=== PATIENT | male | born 1990 | race Caucasian/White ===

== ENCOUNTER 2022-11-09 18:49 | Inpatient (IN) | payer MEDICAID, OTHER ==
[2022-11-09] MEDS ORDERED: SODIUM CHLORIDE 0.9% 1,000 ML IV STA (19:13)
[2022-11-09] MEDS ORDERED: ONDANSETRON 4 MG/2 ML VIAL IVP STA (19:13)
[2022-11-09] MEDS ORDERED: FAMOTIDINE 20 MG/2 ML VIAL IV STA (19:14)
--- NOTE | 2022-11-09 19:17 | ED ---
General Adult HPI - General Chief complaint: Psychiatric Symptoms Stated complaint: mental health Time Seen by Provider: 11/09/22 18:57 Source: patient, RN notes reviewed Mode of arrival: ambulatory Limitations: no limitations - History of Present Illness Initial comments: Patient is a pleasant 32-year-old male presenting to the emergency department with mental health concerns. Patient admits to feeling depressed. Patient has suicidal ideation. Patient does have planned over heat himself in the shower and has tried to do that. No homicidal thoughts. No hallucinations. Patient states she does drink alcohol daily. Patient states there has been some nausea and vomiting. Patient is also having muscle contractions, especially nighttime. - Related Data Home Medications Medication Instructions Recorded Confirmed No Known Home Medications 11/09/22 11/10/22 Allergies Allergy/AdvReac Type Severity Reaction Status Date / Time ibuprofen [From Motrin] Allergy Rash/Hives Verified 11/10/22 00:08 Review of Systems ROS Statement: Those systems with pertinent positive or pertinent negative responses have been documented in the HPI. ROS Other: All systems not noted in ROS Statement are negative. Constitutional: Denies: fever Eyes: Denies: eye pain ENT: Denies: ear pain Respiratory: Denies: cough Cardiovascular: Denies: chest pain Endocrine: Denies: fatigue Gastrointestinal: Reports: nausea, vomiting. Denies: abdominal pain Genitourinary: Denies: dysuria Musculoskeletal: Denies: back pain Psychiatric: Reports: anxiety, depression, suicidal thoughts Past Medical History Past Medical History: No Reported History History of Any Multi-Drug Resistant Organisms: None Reported Past Surgical History: No Surgical Hx Reported Past Psychological History: Anxiety Past Alcohol Use History: Daily Past Drug Use History: Marijuana General Exam Limitations: no limitations General appearance: alert, in no apparent distress Head exam: Present: normocephalic Eye exam: Present: normal appearance ENT exam: Present: normal oropharynx Neck exam: Present: normal inspection Respiratory exam: Present: normal lung sounds bilaterally Cardiovascular Exam: Present: regular rate, normal rhythm GI/Abdominal exam: Present: soft. Absent: tenderness Extremities exam: Present: normal inspection Neurological exam: Present: alert Psychiatric exam: Present: depressed Skin exam: Present: normal color Course Vital Signs 11/09/22 11/09/22 18:57 21:35 Temperature 98.7 F 98.6 F Pulse Rate 126 H 106 H Respiratory 22 19 Rate Blood Pressure 135/101 144/85 O2 Sat by Pulse 96 97 Oximetry Medical Decision Making - Lab Data Result diagrams: 11/10/22 12:14 11/10/22 12:14 Lab Results 11/09/22 11/09/22 11/09/22 Range/Units 19:22 19:22 19:44 WBC 13.4 H (3.8-10.6) k/uL RBC 5.50 (4.30-5.90) m/uL Hgb 17.6 H (13.0-17.5) gm/dL Hct 49.9 (39.0-53.0) % MCV 90.7 (80.0-100.0) fL MCH 31.9 (25.0-35.0) pg MCHC 35.2 (31.0-37.0) g/dL RDW 12.8 (11.5-15.5) % Plt Count 321 (150-450) k/uL MPV 7.5 Neutrophils % 86 % Lymphocytes % 5 % Monocytes % 7 % Eosinophils % 0 % Basophils % 0 % Neutrophils # 11.5 H (1.3-7.7) k/uL Lymphocytes # 0.6 L (1.0-4.8) k/uL Monocytes # 1.0 (0-1.0) k/uL Eosinophils # 0.0 (0-0.7) k/uL Basophils # 0.0 (0-0.2) k/uL Sodium 136 L (137-145) mmol/L Potassium 4.9 (3.5-5.1) mmol/L Chloride 92 L (98-107) mmol/L Carbon Dioxide 15 L (22-30) mmol/L Anion Gap 29 mmol/L BUN 23 H (9-20) mg/dL Creatinine 1.82 H (0.66-1.25) mg/dL Est GFR (CKD-EPI)AfAm 56 (>60 ml/min/1.73 sqM) Est GFR (CKD-EPI)NonAf 48 (>60 ml/min/1.73 sqM) Glucose 123 H (74-99) mg/dL Calcium 10.6 H (8.4-10.2) mg/dL Magnesium 2.3 (1.6-2.3) mg/dL Total Bilirubin 1.7 H (0.2-1.3) mg/dL AST 50 (17-59) U/L ALT 42 (4-49) U/L Alkaline Phosphatase 117 (38-126) U/L Total Protein 10.4 H (6.3-8.2) g/dL Albumin 5.7 H (3.5-5.0) g/dL Urine Opiates Screen Not Detected (NotDetected) Ur Oxycodone Screen Not Detected (NotDetected) Urine Methadone Screen Not Detected (NotDetected) Ur Propoxyphene Screen Not Detected (NotDetected) Ur Barbiturates Screen Not Detected (NotDetected) U Tricyclic Antidepress Not Detected (NotDetected) Ur Phencyclidine Scrn Not Detected (NotDetected) Ur Amphetamines Screen Not Detected (NotDetected) U Methamphetamines Scrn Not Detected (NotDetected) U Benzodiazepines Scrn Not Detected (NotDetected) Urine Cocaine Screen Not Detected (NotDetected) U Marijuana (THC) Screen Detected H (NotDetected) Coronavirus (PCR) (Not Detectd) 11/09/22 Range/Units 23:14 WBC (3.8-10.6) k/uL RBC (4.30-5.90) m/uL Hgb (13.0-17.5) gm/dL Hct (39.0-53.0) % MCV (80.0-100.0) fL MCH (25.0-35.0) pg MCHC (31.0-37.0) g/dL RDW (11.5-15.5) % Plt Count (150-450) k/uL MPV Neutrophils % % Lymphocytes % % Monocytes % % Eosinophils % % Basophils % % Neutrophils # (1.3-7.7) k/uL Lymphocytes # (1.0-4.8) k/uL Monocytes # (0-1.0) k/uL Eosinophils # (0-0.7) k/uL Basophils # (0-0.2) k/uL Sodium (137-145) mmol/L Potassium (3.5-5.1) mmol/L Chloride (98-107) mmol/L Carbon Dioxide (22-30) mmol/L Anion Gap mmol/L BUN (9-20) mg/dL Creatinine (0.66-1.25) mg/dL Est GFR (CKD-EPI)AfAm (>60 ml/min/1.73 sqM) Est GFR (CKD-EPI)NonAf (>60 ml/min/1.73 sqM) Glucose (74-99) mg/dL Calcium (8.4-10.2) mg/dL Magnesium (1.6-2.3) mg/dL Total Bilirubin (0.2-1.3) mg/dL AST (17-59) U/L ALT (4-49) U/L Alkaline Phosphatase (38-126) U/L Total Protein (6.3-8.2) g/dL Albumin (3.5-5.0) g/dL Urine Opiates Screen (NotDetected) Ur Oxycodone Screen (NotDetected) Urine Methadone Screen (NotDetected) Ur Propoxyphene Screen (NotDetected) Ur Barbiturates Screen (NotDetected) U Tricyclic Antidepress (NotDetected) Ur Phencyclidine Scrn (NotDetected) Ur Amphetamines Screen (NotDetected) U Methamphetamines Scrn (NotDetected) U Benzodiazepines Scrn (NotDetected) Urine Cocaine Screen (NotDetected) U Marijuana (THC) Screen (NotDetected) Coronavirus (PCR) Not Detected (Not Detectd) Disposition Clinical Impression: Depression, Suicidal ideation Disposition: ADMITTED IP TO THIS HOSP Condition: Stable Is patient prescribed a controlled substance at d/c from ED?: No
[2022-11-09 19:41] LABS: ALT 42 U/L (4-49); AST 50 U/L (17-59); African American GFR (CKD) 56 (>60 ml/min/1.73 sqM); Albumin 5.7 g/dL (3.5-5.0); Alkaline Phosphatase 117 U/L (38-126); Anion Gap 29 mmol/L; Blood Urea Nitrogen 23 mg/dL (9-20); Calcium 10.6 mg/dL (8.4-10.2); Carbon Dioxide 15 mmol/L (22-30); Chloride 92 mmol/L (98-107); Glucose 123 mg/dL (74-99); Magnesium 2.3 mg/dL (1.6-2.3); Non-African American GFR(CKD) 48 (>60 ml/min/1.73 sqM); Potassium 4.9 mmol/L (3.5-5.1); Sodium 136 mmol/L (137-145); Total Bilirubin 1.7 mg/dL (0.2-1.3); Total Protein 10.4 g/dL (6.3-8.2)
[2022-11-09] MEDS ORDERED: SODIUM CHLORIDE 0.9% 500 ML 500 ML IV STA (19:57)
[2022-11-09 20:25] LABS: Basophils % (A) 0 %; Eosinophils % (A) 0 %; HCT 49.9 % (39.0-53.0); HGB 17.6 gm/dL (13.0-17.5); Lymphocytes # (A) 0.6 k/uL (1.0-4.8); Lymphocytes % (A) 5 %; MCH 31.9 pg (25.0-35.0); MCHC 35.2 g/dL (31.0-37.0); MCV 90.7 fL (80.0-100.0); Mean Platelet Volume 7.5; Monocytes % (A) 7 %; Neutrophils # (A) 11.5 k/uL (1.3-7.7); Neutrophils % (A) 86 %; Platelet Count 321 k/uL (150-450); RDW 12.8 % (11.5-15.5); WBC 13.4 k/uL (3.8-10.6)
[2022-11-09] MEDS ORDERED: ORPHENADRINE 30 MG/ML 2 ML VIAL IVP STA (21:03)
[2022-11-09 22:39] LABS: Amphetamine Screen,Urine Not Detected (NotDetected); Barbiturate Screen,Urine Not Detected (NotDetected); Benzodiazepines Screen,Urine Not Detected (NotDetected); Cocaine Screen,Urine Not Detected (NotDetected); Methadone Screen, Urine Not Detected (NotDetected); Opiate Screen,Urine Not Detected (NotDetected); Oxycodone Screen, Urine Not Detected (NotDetected); Phencyclidine Screen,Urine Not Detected (NotDetected); Tricyclic Antidepressant,Urine Not Detected (NotDetected); Urn Cannabinoid Scrn Detected (NotDetected)
[2022-11-09] MEDS ORDERED: MAG HYDROX/AL HYDROX/SIMETH 30 ML CUP PO PRN (23:24)
[2022-11-09] MEDS ORDERED: IBUPROFEN 600 MG TAB PO PRN (23:24)
[2022-11-09] MEDS ORDERED: haloperidoL 5 MG TAB PO PRN (23:24)
[2022-11-09] MEDS ORDERED: traZODone HCL 50 MG TAB PO PRN (23:24)
[2022-11-09] MEDS ORDERED: LORazepam 2 MG/ML INJ IM PRN (23:24)
[2022-11-09] MEDS ORDERED: HALOPERIDOL LACTATE 5 MG/ML 1 ML VIAL IM PRN (23:24)
[2022-11-09] MEDS ORDERED: MAGNESIUM HYDROXIDE 2,400 MG/10 ML CUP PO PRN (23:24)
[2022-11-10] MEDS: LORazepam 1 MG TAB PO PRN ×2 (01:07→08:13)
[2022-11-10] MEDS: ACETAMINOPHEN TAB 325 MG TAB PO PRN ×2 (01:08→17:54)
[2022-11-10] MEDS ORDERED: diphenhydrAMINE 50 MG CAP PO STA (01:12)
[2022-11-10 03:11] LABS: Amorphous Sediment,Urine Occasional /hpf; Appearance,Urine Cloudy (Clear); Bilirubin,Urine Negative (Negative); Blood,Urine Negative (Negative); Color,Urine Yellow; Glucose,Urine (UA) Negative (Negative); Hyaline Casts,Urine 1976 /lpf (0-2); Ketones,Urine 2+ (Negative); Leukocyte Esterase,Urine Negative (Negative); Mucus,Urine Many /hpf; Nitrite,Urine Negative (Negative); Protein,Urine 3+ (Negative); RBC,Urine 6 /hpf (0-5); Specific Gravity,Urine 1.033 (1.001-1.035); Squamous Epithelial Cell,Urine 2 /hpf (0-4); WBC,Urine 9 /hpf (0-5)
[2022-11-10] MEDS ORDERED: NICOTINE 14MG/24HR PATCH TRANSDERM SCH (09:00)
[2022-11-10 12:44] LABS: Basophils % (A) 0 %; Eosinophils % (A) 0 %; HCT 46.1 % (39.0-53.0); HGB 15.8 gm/dL (13.0-17.5); Lymphocytes # (A) 1.2 k/uL (1.0-4.8); Lymphocytes % (A) 10 %; MCH 32.1 pg (25.0-35.0); MCHC 34.2 g/dL (31.0-37.0); MCV 93.9 fL (80.0-100.0); Mean Platelet Volume 7.2; Monocytes # (A) 0.7 k/uL (0-1.0); Monocytes % (A) 6 %; Neutrophils # (A) 9.6 k/uL (1.3-7.7); Neutrophils % (A) 82 %; Platelet Count 303 k/uL (150-450); RBC 4.91 m/uL (4.30-5.90); RDW 12.4 % (11.5-15.5); WBC 11.7 k/uL (3.8-10.6)
[2022-11-10 12:57] LABS: ALT 32 U/L (4-49); AST 38 U/L (17-59); African American GFR (CKD) >90 (>60 ml/min/1.73 sqM); Albumin 4.8 g/dL (3.5-5.0); Alkaline Phosphatase 104 U/L (38-126); Anion Gap 15 mmol/L; Blood Urea Nitrogen 17 mg/dL (9-20); Calcium 9.6 mg/dL (8.4-10.2); Carbon Dioxide 26 mmol/L (22-30); Chloride 95 mmol/L (98-107); Glucose 104 mg/dL (74-99); Non-African American GFR(CKD) >90 (>60 ml/min/1.73 sqM); Potassium 4.2 mmol/L (3.5-5.1); Sodium 136 mmol/L (137-145); Total Bilirubin 1.7 mg/dL (0.2-1.3); Total Protein 8.5 g/dL (6.3-8.2)
[2022-11-10] MEDS ORDERED: LORazepam 1 MG TAB PO PRN (13:49)
--- NOTE | 2022-11-10 14:03 | P.CN ---
Psychiatric Consult - . Consult date: 11/10/22 Consult:: 11/10/22 13:45 IDENTIFYING DATA: Patient is a 32-year-old male, currently lives alone in a trailer, he works doing [employer] times, he has one son and is currently . HPI: Patient presented to the hospital yesterday, complaining of depression and anxiety and suicidal thoughts and also alcohol abuse. Patient was admitted voluntarily to the mental health unit and seen today for intake. Patient appeared to be disheveled and unkempt in appearance. He states that his left him in August and also took his son as well and he can only see him for once a week. He states that he also has been having relationship issues with his mother, he states that she has been the main support for him however they often get into arguments. He states that he also has little other friends and support outside of his mother. He claims that he lives alone which has been hard for him. Claims that he feels that he has been getting sick with different sinus infections and also abdominal pain in the past few months. He states that he has severe levels of anxiety during the day and at nighttime experiences panic attacks almost nightly. He claims is mainly palpitations and needs to pace around the room for about 5 minutes to get it to calm down. He claims that his also been feeling depressed and claims that he has been also feeling suicidal lately. He claims that he wanted to overheat himself in the shower 3 times in the past however it is failed. He claims that his sleep has been poor, having frequent awakenings. he states that he is still having suicidal thoughts, no intent or plan. denies any homicidal ideations intent or plan. At this time patient denies any auditory or visual hallucinations. Patient denies any flight of ideas racing thoughts and increased in goal directed behavior. Patient admits to using thc occasionally, denies any cigarette use. he claims that he is drinking several beers and approx a half pint of whiskey per day. PAST PSYCHIATRIC HISTORY: Patient states that he has a hx of depression and anxiety. He claims that he is currently not on any psychiatric medications at this time however has been on Xanax in the past. States that he was last psychiatrically admitted to [facility] unit at 10 years ago. Patient denies any psychiatric outpatient follow-up. Patient denies any history of suicide attempts in the past. Past Medical History: No Reported History History of Any Multi-Drug Resistant Organisms: None Reported Past Surgical History: No Surgical Hx Reported Past Psychological History: Anxiety Past Alcohol Use History: Daily Past Drug Use History: Marijuana ALLERGIES: as per EMR CHEMICAL DEPENDENCY HISTORY: as per HPI FAMILY PSYCHIATRIC/SUBSTANCE USE HISTORY: He claims that his mother has severe anxiety. SOCIAL HISTORY: Patient was born and raised in [place] and also in [place]. He claims that he completed high school. 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 He states that he has one son, is currently . He lives in a trailer alone. He denies any legal history. MENTAL STATUS EXAM: General Appearance: Patient appears to be thin, tall, longer hair, unkempt/disheveled appearance, stated age is alert, directable, and attempts to cooperate. Patient appears to have poor hygiene and grooming. Behavior: Patient is seated without any agitated behavior. Tearful at times. Attempts to cooperate. Speech: Patient's speech is fluent and nonpressured. Mood/Affect: Patient reports their mood is depressed and anxious, affect is congruent and tearful Suicidality/Homicidality: Patient denies having any homicidal ideation intent or plan. Things that he has suicidal thoughts however no intent or plan. Perceptions: Patient denies any visual hallucinations and denies any auditory hallucinations Though content/process: There is no evidence of any delusional thought content and thought process is linear and goal-directed. Focused on his symptoms. Memory and concentration: AOX3, grossly intact for the purposes of this session. Can spell "WORLD" backwards Judgment and insight: poor STRENGTHS/WEAKNESSES: strength is that patient is resilient. Weakness is that patient [has poor judgment and poor social support INTELLECT: average IMPRESSIONS: Major depressive disorder, severe, recurrent without psychotic features Generalized anxiety disorder with panic attacks Cannabis use disorder mild Alcohol use disorder, severe dependence PLAN: -Patient is admitted under voluntary status to MHU for stabilization of psychiatric symptoms and safety. Patient has signed adult voluntary form and medication consent and is placed in patient's chart. -Medications : Will start patient on Cymbalta 30 mg daily for mood/anxiety, Librium 20 mg 3 times a day for alcohol withdrawal, Seroquel 50 mg daily at bedtime for mood stabilization/anxiety/insomnia. -Ativan and Haldol PRN for agitation/aggression -thiamine, MVM for etoh use -CIWA protocol with Ativan PRN for ETOH withdrawal -Patient was counselled on substance abuse and desired to cut back on use -Patient was informed of the risks, benefits and side effects of the medication and patient verbally consented to taking the medications. Patient signed med consent form and was placed in chart. -Internal Medicine consult to perform medical evaluation and physical. -NRT - not needed as patient does not smoke -SW on board for discharge planning. Encourage patient to participate in groups to work on coping skills. 11/10/22 13:54
[2022-11-10] MEDS: CIPROFLOXACIN 0.3% OPHTH SOLN 5 ML BTL BOTH EYES SCH ×2 (14:58→19:56)
[2022-11-10] MEDS: AMOXIC-POT CLAV 875-125MG 1 EACH TAB PO SCH ×2 (14:58→19:55)
[2022-11-10] MEDS: LORATADINE 10 MG TAB PO SCH (14:58)
[2022-11-10] MEDS: FLUTICASONE 50MCG/SPRAY NASAL 16GM EA NOSTRIL SCH (14:58)
[2022-11-10] MEDS: DULoxetine HCL 30 MG CAPSULE.DR PO SCH (14:59)
[2022-11-10] MEDS: guaiFENesin 600 MG TABLET.ER PO SCH ×2 (14:59→19:55)
[2022-11-10 16:19] VITALS: BMI 20.9
--- NOTE | 2022-11-10 16:30 | P.CONS ---
History of Present Illness - Reason for Consult Consult date: 11/10/22 - History of Present Illness Patient is a 32-year-old male with no significant PMH the presents to [facility] for mental health evaluation. He has been admitted to the mental health unit for further management of his psychiatric condition. [facility] has been consulted for medical management of this patient. Patient reports a sinus infection that started on Wednesday. Symptoms include nasal congestion, rhinorrhea, frontal headache, cough productive of yellow sputum. This morning, he noted that his eyes were crusted with yellow purulent drainage along with redness. He reports some fever and chills. He reports a history of seasonal ALLERGIES. Patient reports drinking a half pint of liquor daily for years. His last drink was on Wednesday. He denies any headache, lower extremity edema, nausea or vomiting, chest pain, shortness of breath, palpitations, changes in urination or bowel habits. No changes in appetite or weight. He denies any dizziness, numbness/weakness/tingling of the extremities. In the ED, he was noted to be tachycardic with heart rate of 126 and hypertensive with BP of 135/101. CBC showed leukocytosis of 13.4 with neutrophilia. CMP showed sodium 136, chloride of 92, bicarb 15, BUN of 23, creatinine of 1.82, glucose 123, calcium of 10.6, total bilirubin of 1.7. Urinalysis showed 3+ protein and 2+ ketones. UDS positive for marijuana. COVID-19 negative. Pertinent positives and negatives as discussed in HPI, a complete review of systems was performed and all other systems are negative. General: non toxic, no distress, appears at stated age Derm: warm, dry Head: atraumatic, normocephalic, symmetric Eyes: EOMI, no lid lag, scleral injection bilaterally Mouth: no lip lesion, mucus membranes moist Cardiovascular: Tachycardic, no murmur Lungs: CTA bilateral, no rhonchi, no rales , no accessory muscle use Ext: no gross muscle atrophy, no edema, no contractures Neuro: CN II-XI grossly intact, no focal neuro deficits Psych: Alert, oriented, appropriate affect Sinusitis and conjunctivitis, likely viral Acute kidney injury Starvation ketoacidosis Elevated total bilirubin Alcohol abuse Marijuana abuse Patient be started on Augmentin 875/125 one tablet twice a day for 7 days for treatment of sinusitis. Start Mucinex 1200 mg by mouth twice a day. Start Flonase. Claritin 10 mg by mouth daily. Ciprofloxacin ophthalmic ointment. He was given 2 L normal saline in the ED. His acute kidney injury and acidosis has resolved. Patient has been encouraged hydration by mouth. Patient has been advised to refrain from drinking alcohol and illicit substa nces. Rest of management as per psychiatry. Past Medical History Past Medical History: No Reported History History of Any Multi-Drug Resistant Organisms: None Reported Past Surgical History: No Surgical Hx Reported Past Anesthesia/Blood Transfusion Reactions: No Reported Reaction Past Psychological History: Anxiety, Depression Smoking Status: Never smoker Past Alcohol Use History: Daily Past Drug Use History: Marijuana Medications and Allergies Home Medications Medication Instructions Recorded Confirmed Type No Known Home Medications 11/09/22 11/10/22 History Allergies Allergy/AdvReac Type Severity Reaction Status Date / Time ibuprofen [From Motrin] Allergy Rash/Hives Verified 11/10/22 00:08 Physical Exam Vitals: Vital Signs Temp Pulse Pulse Resp BP BP Pulse Ox 11/10/22 01:44 99.0 F 107 H 15 135/87 96 11/09/22 21:35 98.6 F 106 H 19 144/85 97 11/09/22 18:57 98.7 F 126 H 22 135/101 96 Intake and Output 11/10/22 11/10/22 11/10/22 06:59 14:59 22:59 Other: Weight 72.178 kg 72.178 kg Results CBC & Chem 7: 11/10/22 12:14 11/10/22 12:14 Labs: Abnormal Lab Results - Last 24 Hours (Table) 11/09/22 11/09/22 11/09/22 Range/Units 19:22 19:22 19:44 WBC 13.4 H (3.8-10.6) k/uL Hgb 17.6 H (13.0-17.5) gm/dL Neutrophils # 11.5 H (1.3-7.7) k/uL Lymphocytes # 0.6 L (1.0-4.8) k/uL Sodium 136 L (137-145) mmol/L Chloride 92 L (98-107) mmol/L Carbon Dioxide 15 L (22-30) mmol/L BUN 23 H (9-20) mg/dL Creatinine 1.82 H (0.66-1.25) mg/dL Glucose 123 H (74-99) mg/dL Calcium 10.6 H (8.4-10.2) mg/dL Total Bilirubin 1.7 H (0.2-1.3) mg/dL Total Protein 10.4 H (6.3-8.2) g/dL Albumin 5.7 H (3.5-5.0) g/dL Urine Protein (Negative) Urine Ketones (Negative) Urine RBC (0-5) /hpf Urine WBC (0-5) /hpf Amorphous Sediment (None) /hpf Hyaline Casts (0-2) /lpf Urine Mucus (None) /hpf U Marijuana (THC) Screen Detected H (NotDetected) 11/10/22 11/10/22 11/10/22 Range/Units 02:54 12:14 12:14 WBC 11.7 H (3.8-10.6) k/uL Hgb (13.0-17.5) gm/dL Neutrophils # 9.6 H (1.3-7.7) k/uL Lymphocytes # (1.0-4.8) k/uL Sodium 136 L (137-145) mmol/L Chloride 95 L (98-107) mmol/L Carbon Dioxide (22-30) mmol/L BUN (9-20) mg/dL Creatinine (0.66-1.25) mg/dL Glucose 104 H (74-99) mg/dL Calcium (8.4-10.2) mg/dL Total Bilirubin 1.7 H (0.2-1.3) mg/dL Total Protein 8.5 H (6.3-8.2) g/dL Albumin (3.5-5.0) g/dL Urine Protein 3+ H (Negative) Urine Ketones 2+ H (Negative) Urine RBC 6 H (0-5) /hpf Urine WBC 9 H (0-5) /hpf Amorphous Sediment Occasional H (None) /hpf Hyaline Casts 1976 H (0-2) /lpf Urine Mucus Many H (None) /hpf U Marijuana (THC) Screen (NotDetected)
[2022-11-10] MEDS: hydrOXYzine pamoate 25 MG CAP PO PRN (19:55)
[2022-11-10 20:17] LABS: Chol/HDL Ratio 2.65 Ratio; LDL Cholesterol,Calculated 117.2 mg/dL; VLDL Calculation 14.08 mg/dL
[2022-11-10] MEDS ORDERED: QUEtiapine 50 MG TAB PO SCH (21:00)
[2022-11-11] MEDS: CIPROFLOXACIN 0.3% OPHTH SOLN 5 ML BTL BOTH EYES SCH ×6 (01:19→20:49)
[2022-11-11] MEDS: THIAMINE 100 MG TAB PO SCH (09:27)
[2022-11-11] MEDS: DULoxetine HCL 30 MG CAPSULE.DR PO SCH (09:27)
[2022-11-11] MEDS: FOLIC ACID 1 MG TAB PO SCH (09:27)
[2022-11-11] MEDS: LORATADINE 10 MG TAB PO SCH (09:28)
[2022-11-11] MEDS: AMOXIC-POT CLAV 875-125MG 1 EACH TAB PO SCH ×2 (09:28→20:49)
[2022-11-11] MEDS: MULTIVITAMINS, THERA 1 EACH TAB PO SCH (09:28)
[2022-11-11] MEDS: FLUTICASONE 50MCG/SPRAY NASAL 16GM EA NOSTRIL SCH (09:29)
[2022-11-11] MEDS: guaiFENesin 600 MG TABLET.ER PO SCH ×2 (09:30→20:49)
[2022-11-11] MEDS: hydrOXYzine pamoate 25 MG CAP PO PRN (12:12)
[2022-11-11] MEDS: chlordiazePOXIDE 25 MG CAP PO SCH ×3 (12:46→20:49)
--- NOTE | 2022-11-11 13:21 | P.PN ---
Progress Note - Text Progress Note Date: 11/11/22 Interval History: Patient was seen lying in bed this morning and was directable and agreeable to speak with selling underwriter in the office. Patient continues to state that he has high levels of anxiety during the day. He claims that he was having suicidal thoughts last night about wanting to cut himself. He states that the medications are only been helping mildly at this time has not seen much of an improvement. She also claims that he is having some withdrawal symptoms which are mild including mild tremors. We spoke about increasing his Librium which he was okay with. He claims that he slept about 4 or 5 hours last night and wanted to Seroquel increased. She continues to appear to be fairly anxious and his affect and also endorsing depression. At this time patient denies any homical ideations, intent or plan. Patient denies any auditory, visual hallucinations and denies any paranoia or delusions. Patient denies any side effects from the medications and has been compliant with meds. Mental Status Exam: General Appearance: Patient appears to be thin, tall, longer hair, mildly impro ving appearance, stated age is alert, directable, and attempts to cooperate. Patient appears to have improving hygiene and grooming. Behavior: Patient is seated without any agitated behavior. Not Tearful today. Attempts to cooperate. Speech: Patient's speech is fluent and nonpressured. Mood/Affect: Patient reports their mood is depressed and anxious, affect is congruent and constricted Suicidality/Homicidality: Patient denies having any homicidal ideation intent or plan. Continues to have suicidal thoughts however no intent or plan. Perceptions: Patient denies any visual hallucinations and denies any auditory hallucinations Though content/process: There is no evidence of any delusional thought content and thought process is linear and goal-directed. Focused on his symptoms. Memory and concentration: AOX3, grossly intact for the purposes of this session. Can spell "WORLD" backwards Judgment and insight: poor, improving mildly IMPRESSIONS: Major depressive disorder, severe, recurrent without psychotic features Generalized anxiety disorder with panic attacks Cannabis use disorder mild Alcohol use disorder, severe dependence PLAN: -Patient is admitted under voluntary status to MHU for stabilization of psychiatric symptoms and safety. Patient has signed adult voluntary form and medication consent and is placed in patient's chart. -Medications : Increase Cymbalta 60 mg daily for mood/anxiety, increase Librium 25 mg 3 times a day for alcohol withdrawal, increase Seroquel 75 mg daily at bedtime for mood stabilization/anxiety/insomnia. -Ativan and Haldol PRN for agitation/aggression -thiamine, MVM for etoh use -CIWA protocol with Ativan PRN for ETOH withdrawal -NRT - not needed as patient does not smoke -SW on board for discharge planning. Encourage patient to participate in groups to work on coping skills.
[2022-11-11] MEDS: LORazepam 1 MG TAB PO PRN (13:53)
[2022-11-11] MEDS ORDERED: QUEtiapine 25 MG TAB PO SCH (21:00)
[2022-11-12] MEDS: CIPROFLOXACIN 0.3% OPHTH SOLN 5 ML BTL BOTH EYES SCH ×6 (00:46→20:41)
[2022-11-12] MEDS: DULoxetine HCL 60 MG CAPSULE.DR PO SCH (08:11)
[2022-11-12] MEDS: AMOXIC-POT CLAV 875-125MG 1 EACH TAB PO SCH ×2 (08:11→20:40)
[2022-11-12] MEDS: chlordiazePOXIDE 25 MG CAP PO SCH (08:11)
[2022-11-12] MEDS: guaiFENesin 600 MG TABLET.ER PO SCH ×2 (08:12→20:40)
[2022-11-12] MEDS: MULTIVITAMINS, THERA 1 EACH TAB PO SCH (08:12)
[2022-11-12] MEDS: LORATADINE 10 MG TAB PO SCH (08:12)
[2022-11-12] MEDS: FOLIC ACID 1 MG TAB PO SCH (08:12)
[2022-11-12] MEDS: THIAMINE 100 MG TAB PO SCH (08:12)
[2022-11-12] MEDS: FLUTICASONE 50MCG/SPRAY NASAL 16GM EA NOSTRIL SCH (08:12)
[2022-11-12] MEDS: LORazepam 1 MG TAB PO PRN (11:03)
[2022-11-12] MEDS: busPIRone HCl 10 MG TAB PO SCH ×3 (11:31→20:42)
--- NOTE | 2022-11-12 12:28 | P.PN ---
Progress Note - Text Progress Note Date: 11/12/22 Interval History: Patient was seen sitting in on group this morning and participating. He appea red to have improvement in his hygiene and grooming today. He states that overall he is doing mildly better compared to yesterday. He continues to be tearful at times when talking about his severe anxiety. He also states that he is also still having depression which is fairly significant for him. He also claims that he is having withdrawal symptoms mainly manifested by anxiety, not displaying any tremors at this time. He has been taking Ativan when necessary and also the Librium scheduled. He states that he is seeing mild steps towards improvement however has on and off suicidal thoughts, no intent or plan today. He claims that he did have a panic attack last night and needed assistance from nursing staff. At this time patient denies any homical ideations, intent or plan. Patient denies any auditory, visual hallucinations and denies any paranoia or delusions. Patient denies any side effects from the medications and has been compliant with meds. Mental Status Exam: General Appearance: Patient appears to be thin, tall, longer hair, mildly improving appearance, stated age is alert, directable, and attempts to cooperate. Patient appears to have improving hygiene and grooming. Behavior: Patient is seated without any agitated behavior. Tearful today. Attempts to cooperate. Speech: Patient's speech is fluent and nonpressured. Mood/Affect: Patient reports their mood is depressed and anxious, very mild improvement, affect is congruent and tearful at times. Suicidality/Homicidality: Patient denies having any homicidal ideation intent or plan. Continues to have on and off suicidal thoughts however no intent or plan. Perceptions: Patient denies any visual hallucinations and denies any auditory hallucinations Though content/process: There is no evidence of any delusional thought content and thought process is linear and goal-directed. Focused on his symptoms. Memory and concentration: AOX3, grossly intact for the purposes of this session Judgment and insight: improving mildly IMPRESSIONS: Major depressive disorder, severe, recurrent without psychotic features Generalized anxiety disorder with panic attacks Cannabis use disorder mild Alcohol use disorder, severe dependence PLAN: -Patient is admitted under voluntary status to MHU for stabilization of psychiatric symptoms and safety. Patient has signed adult voluntary form and medication consent and is placed in patient's chart. -Medications : Cymbalta 60 mg daily for mood/anxiety, decrease Librium 20 mg 3 times a day for alcohol withdrawal, increase Seroquel 100 mg daily at bedtime for mood stabilization/anxiety/insomnia. added buspar 10 mg tid for anxiety. vistaril prn for anxiety -Ativan and Haldol PRN for agitation/aggression -thiamine, MVM for etoh use -CIWA protocol with Ativan PRN for ETOH withdrawal -NRT - not needed as patient does not smoke -SW on board for discharge planning. Encourage patient to participate in groups to work on coping skills. at this time patient is not psychiatrically stable for discharge and possibly discharge early next week if patient is improving.
[2022-11-12] MEDS: hydrOXYzine pamoate 25 MG CAP PO PRN (15:38)
[2022-11-12] MEDS ORDERED: QUEtiapine 100 MG TAB PO SCH (21:00)
[2022-11-13] MEDS: CIPROFLOXACIN 0.3% OPHTH SOLN 5 ML BTL BOTH EYES SCH ×6 (01:24→20:22)
[2022-11-13 07:00] VITALS: RESP 16
[2022-11-13] MEDS: busPIRone HCl 10 MG TAB PO SCH (09:57)
[2022-11-13] MEDS: FLUTICASONE 50MCG/SPRAY NASAL 16GM EA NOSTRIL SCH (09:57)
[2022-11-13] MEDS: DULoxetine HCL 60 MG CAPSULE.DR PO SCH (09:57)
[2022-11-13] MEDS: AMOXIC-POT CLAV 875-125MG 1 EACH TAB PO SCH ×2 (09:57→20:21)
[2022-11-13] MEDS: THIAMINE 100 MG TAB PO SCH (09:58)
[2022-11-13] MEDS: FOLIC ACID 1 MG TAB PO SCH (09:58)
[2022-11-13] MEDS: guaiFENesin 600 MG TABLET.ER PO SCH ×2 (09:59→20:21)
[2022-11-13] MEDS: MULTIVITAMINS, THERA 1 EACH TAB PO SCH (10:00)
[2022-11-13] MEDS: LORATADINE 10 MG TAB PO SCH (10:00)
--- NOTE | 2022-11-13 11:39 | P.PN ---
Progress Note - Text Progress Note Date: 11/13/22 Interval History: Patient was seen sitting in on group this morning and participating. Patient claims that he is still having severe anxiety at times during the day and states that last night he woke up in a panic attack. He claims that the Seroquel has been getting him more sleep and we spoke about increasing the dose. He claims that he does have racing thoughts which are mainly negative during the day and claims that he is frustrated and does not know how to calm them down. He claims that his mood has been overall improving mildly on the medications. He states that his appetite is gradually improving. Claims that physically he is also improving. He was less tearful today during conversation, he was thankful to the life underwriter about his advice and also in being here in the hospital receiving help. he claims that he is not having suicidal thoughts, no intent or plan today. He claims that he did have a panic attack last night and needed assistance from nursing staff. At this time patient denies any homical ideations, intent or plan. Patient denies any auditory, visual hallucinations and denies any paranoia or delusions. Patient denies any side effects from the medications and has been compliant with meds. Mental Status Exam: General Appearance: Patient appears to be thin, tall, longer hair, mildly improving appearance, stated age is alert, directable, and attempts to cooperate. Patient appears to have improving hygiene and grooming. Behavior: Patient is seated without any agitated behavior. less Tearful today. Attempts to cooperate. Speech: Patient's speech is fluent and nonpressured. Mood/Affect: Patient reports their mood is very mild improvement, affect is con gruent and less tearful today Suicidality/Homicidality: Patient denies having any homicidal ideation intent or plan. today he denies any suicidal thoughts however no intent or plan. Perceptions: Patient denies any visual hallucinations and denies any auditory hallucinations Though content/process: There is no evidence of any delusional thought content and thought process is linear and goal-directed. Focused on his symptoms. Memory and concentration: AOX3, grossly intact for the purposes of this session Judgment and insight: improving mildly IMPRESSIONS: Major depressive disorder, severe, recurrent without psychotic features Generalized anxiety disorder with panic attacks Cannabis use disorder mild Alcohol use disorder, severe dependence PLAN: -Patient is admitted under voluntary status to [facility] for stabilization of psychiatric symptoms and safety. Patient has signed adult voluntary form and medication consent and is placed in patient's chart. -Medications : increase Cymbalta 90 mg daily for mood/anxiety, decrease Librium 10 mg 4 times a day for alcohol withdrawal and set to continue tapering dose throughout the weekend, increase Seroquel 150 mg daily at bedtime for mood stab ilization/anxiety/insomnia. increase buspar 15 mg tid for anxiety. vistaril prn for anxiety -Ativan and Haldol PRN for agitation/aggression -thiamine, MVM for etoh use -CIWA protocol with Ativan PRN for ETOH withdrawal -NRT - not needed as patient does not smoke -SW on board for discharge planning. Encourage patient to participate in groups to work on coping skills. at this time patient is not psychiatrically stable for discharge and possibly discharge early next week if patient is improving.
[2022-11-13] MEDS: busPIRone HCl 5 MG TAB PO SCH ×2 (15:34→20:21)
[2022-11-13] MEDS: LORazepam 1 MG TAB PO PRN (17:47)
[2022-11-13] MEDS ORDERED: QUEtiapine 50 MG TAB PO SCH (21:00)
[2022-11-14] MEDS: CIPROFLOXACIN 0.3% OPHTH SOLN 5 ML BTL BOTH EYES SCH ×6 (00:46→21:00)
[2022-11-14] MEDS: busPIRone HCl 5 MG TAB PO SCH ×3 (08:02→20:59)
[2022-11-14] MEDS: THIAMINE 100 MG TAB PO SCH (08:02)
[2022-11-14] MEDS: AMOXIC-POT CLAV 875-125MG 1 EACH TAB PO SCH ×2 (08:02→21:00)
[2022-11-14] MEDS: FLUTICASONE 50MCG/SPRAY NASAL 16GM EA NOSTRIL SCH (08:02)
[2022-11-14] MEDS: guaiFENesin 600 MG TABLET.ER PO SCH ×2 (08:03→21:00)
[2022-11-14] MEDS: MULTIVITAMINS, THERA 1 EACH TAB PO SCH (08:03)
[2022-11-14] MEDS: DULoxetine HCL 30 MG CAPSULE.DR PO SCH (08:04)
[2022-11-14] MEDS: FOLIC ACID 1 MG TAB PO SCH (08:04)
[2022-11-14] MEDS: LORATADINE 10 MG TAB PO SCH (08:04)
[2022-11-14] MEDS: LORazepam 1 MG TAB PO PRN (10:05)
[2022-11-14] MEDS ORDERED: QUEtiapine 100 MG TAB PO STA (10:34)
--- NOTE | 2022-11-14 10:42 | P.PN ---
Subjective Progress Note Date: 11/14/22 Principal diagnosis: Diagnoses major depression recurrent severe Price, use disorder Generalized anxiety disorder Patient claims that he is still having severe anxiety at times during the day and states that last night he woke up in a panic attack. He claims that the Seroquel has been getting him more sleep but only about 4 hours so we are going to increase the dose given 100 now and 300. He claims that he does have racing thoughts which are mainly negative during the day and claims that he is frustrated and does not know how to calm them down. He claims that his mood has been overall improving mildly on the medications. He states that his appetite is gradually improving. Claims that physically he is also improving. He claims that he is not having suicidal thoughts, no intent or plan today. At this time patient denies any homical ideations, intent or plan. Patient denies any auditory, visual hallucinations and denies any paranoia or delusions. Patient denies any side effects from the medications and has been compliant with meds. Mental Status Exam: General Appearance: Patient appears to be thin, tall, longer hair, mildly improving appearance, stated age is alert, directable, and attempts to cooperate. Patient appears to have improving hygiene and grooming. Behavior: Patient is seated without any agitated behavior. less Tearful today. Attempts to cooperate. Speech: Patient's speech is fluent and nonpressured. Mood/Affect: Patient reports their mood is very mild improved, affect is tense Suicidality/Homicidality: Patient denies having any homicidal ideation intent or plan. today he denies any suicidal thoughts however no intent or plan. Perceptions: Patient denies any visual hallucinations and denies any auditory hallucinations Though content/process: There is no evidence of any delusional thought content and thought process is linear and goal-directed. Focused on his symptoms. Memory and concentration: AOX3, grossly intact for the purposes of this session Judgment and insight: improving mildly IMPRESSIONS: Major depressive disorder, severe, recurrent without psychotic features Generalized anxiety disorder with panic attacks Cannabis use disorder mild Alcohol use disorder, severe dependence PLAN: -Patient is admitted under voluntary status to [facility] for stabilization of psychiatric symptoms and safety. Patient has signed adult voluntary form and medication consent and is placed in patient's chart. -Medications : Cymbalta 90 mg daily for mood/anxiety, decrease Librium 10 mg 4 times a day for alcohol withdrawal and set to continue tapering dose throughout the weekend, increase Seroquel 300 mg daily at bedtime for mood stabilization less than X 100 now/anxiety/insomnia. increase buspar 15 mg tid for anxiety. vistaril prn for anxiety -Ativan and Haldol PRN for agitation/aggression -thiamine, MVM for etoh use -CIWA protocol with Ativan PRN for ETOH withdrawal -NRT - not needed as patient does not smoke -SW on board for discharge planning. Encourage patient to participate in groups to work on coping skills. at this time patient is not psychiatrically stable for discharge and possibly discharge early next week if patient is improving. Objective - Vital Signs Vital signs: Vital Signs Temp 98.2 F 11/13/22 06:00 Pulse 63 11/13/22 17:44 Resp 16 11/13/22 06:00 BP 155/103 11/13/22 17:44 Pulse Ox 99 11/13/22 06:00 FiO2 - Labs CBC & Chem 7: 11/10/22 12:14 11/10/22 12:14
[2022-11-14] MEDS: QUEtiapine 100 MG TAB PO SCH (20:59)
[2022-11-15] MEDS: CIPROFLOXACIN 0.3% OPHTH SOLN 5 ML BTL BOTH EYES SCH ×6 (02:19→20:27)
[2022-11-15] MEDS: AMOXIC-POT CLAV 875-125MG 1 EACH TAB PO SCH ×2 (08:53→20:26)
[2022-11-15] MEDS: busPIRone HCl 5 MG TAB PO SCH ×3 (08:53→20:26)
[2022-11-15] MEDS: DULoxetine HCL 30 MG CAPSULE.DR PO SCH (08:54)
[2022-11-15] MEDS: guaiFENesin 600 MG TABLET.ER PO SCH ×2 (08:54→20:26)
[2022-11-15] MEDS: THIAMINE 100 MG TAB PO SCH (08:54)
[2022-11-15] MEDS: MULTIVITAMINS, THERA 1 EACH TAB PO SCH (08:54)
[2022-11-15] MEDS: FOLIC ACID 1 MG TAB PO SCH (08:55)
[2022-11-15] MEDS: LORATADINE 10 MG TAB PO SCH (08:55)
[2022-11-15] MEDS: FLUTICASONE 50MCG/SPRAY NASAL 16GM EA NOSTRIL SCH (08:56)
[2022-11-15] MEDS: hydrOXYzine pamoate 25 MG CAP PO PRN (11:03)
--- NOTE | 2022-11-15 14:53 | P.PN ---
Subjective Progress Note Date: 11/15/22 Principal diagnosis: Diagnoses major depression recurrent severe Price, use disorder Generalized anxiety disorder Patient claims that he is still having severe anxiety at times during the day. He says that the 100 mg of Seroquel he took in the middle of the day yesterday did not make him sleepy and help a lot with anxiety during the day and would like to try taking it a little more frequent I think we will add some in the morning and noon.. He slept well on the 300 mg of Seroquel last night. He is racing thoughts are somewhat better but they reaction better yesterday afternoon with the extra Seroquel.. He claims that his mood has been overall improving mildly on the medications. He states that his appetite is gradually improving. Claims that physically he is also improving. He claims that he is not having suicidal thoughts, no intent or plan today. At this time patient denies any homical ideations, intent or plan. Patient denies any auditory, visual halluc inations and denies any paranoia or delusions. Patient denies any side effects from the medications and has been compliant with meds. Mental Status Exam: General Appearance: Patient appears to be thin, tall, longer hair, mildly improving appearance, stated age is alert, directable, and attempts to cooperate. Patient appears to have improving hygiene and grooming. Behavior: Patient is seated without any agitated behavior. less Tearful today. Attempts to cooperate. Speech: Patient's speech is fluent and nonpressured. Mood/Affect: Patient reports their mood is very mild improved, affect is tense Suicidality/Homicidality: Patient denies having any homicidal ideation intent or plan. today he denies any suicidal thoughts however no intent or plan. Perceptions: Patient denies any visual hallucinations and denies any auditory hallucinations Though content/process: There is no evidence of any delusional thought content and thought process is linear and goal-directed. Focused on his symptoms. Memory and concentration: AOX3, grossly intact for the purposes of this session Judgment and insight: improving mildly IMPRESSIONS: Major depressive disorder, severe, recurrent without psychotic features Generalized anxiety disorder with panic attacks Cannabis use disorder mild Alcohol use disorder, severe dependence PLAN: Seroquel 100 and morning Seroquel 100 at noon and 300 at bedtime -Patient is admitted under voluntary status to [facility] for stabilization of psychiatric symptoms and safety. Patient has signed adult voluntary form and medication consent and is placed in patient's chart. -Medications : Cymbalta 90 mg daily for mood/anxiety, decrease Librium 10 mg 4 times a day for alcohol withdrawal and set to continue tapering dose throughout the weekend, increase Seroquel 300 mg daily at bedtime for mood stabilization less than X 100 now/anxiety/insomnia. increase buspar 15 mg tid for anxiety. vistaril prn for anxiety -Ativan and Haldol PRN for agitation/aggression -thiamine, MVM for etoh use -CIWA protocol with Ativan PRN for ETOH withdrawal -NRT - not needed as patient does not smoke -SW on board for discharge planning. Encourage patient to participate in groups to work on coping skills. at this time patient is not psychiatrically stable for discharge and possibly discharge early next week if patient is improving. Objective - Vital Signs Vital signs: Vital Signs Temp 98.2 F 11/13/22 06:00 Pulse 63 11/13/22 17:44 Resp 16 11/13/22 06:00 BP 155/103 11/13/22 17:44 Pulse Ox 99 11/13/22 06:00 FiO2 Intake & Output 11/14/22 11/15/22 11/15/22 18:59 06:59 18:59 Weight 74.6 kg - Labs CBC & Chem 7: 11/10/22 12:14 11/10/22 12:14
[2022-11-15] MEDS: QUEtiapine 100 MG TAB PO SCH (20:27)
[2022-11-16] MEDS: CIPROFLOXACIN 0.3% OPHTH SOLN 5 ML BTL BOTH EYES SCH ×6 (01:21→21:03)
[2022-11-16] MEDS ORDERED: QUEtiapine 100 MG TAB PO SCH ×2 (09:00)
[2022-11-16] MEDS: busPIRone HCl 5 MG TAB PO SCH ×3 (09:23→21:03)
[2022-11-16] MEDS: DULoxetine HCL 30 MG CAPSULE.DR PO SCH (09:23)
[2022-11-16] MEDS: AMOXIC-POT CLAV 875-125MG 1 EACH TAB PO SCH ×2 (09:23→21:03)
[2022-11-16] MEDS: LORATADINE 10 MG TAB PO SCH (09:24)
[2022-11-16] MEDS: guaiFENesin 600 MG TABLET.ER PO SCH ×2 (09:24→21:03)
[2022-11-16] MEDS: MULTIVITAMINS, THERA 1 EACH TAB PO SCH (09:24)
[2022-11-16] MEDS: FOLIC ACID 1 MG TAB PO SCH (09:24)
[2022-11-16] MEDS: FLUTICASONE 50MCG/SPRAY NASAL 16GM EA NOSTRIL SCH (09:24)
[2022-11-16] MEDS: THIAMINE 100 MG TAB PO SCH (09:25)
--- NOTE | 2022-11-16 10:17 | P.PN ---
Progress Note - Text Progress Note Date: 11/16/22 Interval History: Patient was seen sitting in on group this morning and participating. Patient appears to have improvement in his hygiene and grooming today. He states that his anxiety has been improving significantly with the Seroquel. He states that the dose was increased over the weekend. We spoke about the side effects, benefits and risks of Seroquel and to try and manage anxiety in other ways including therapy and also other medications with less side effects, patient verbally understood and agreed. We agreed to discontinue the afternoon dose. He states that he is participating more in group and states that the anxiety has been more manageable. He states that his mood is also improving. Claims that the racing thoughts are also improving. he claims that he is not having suicidal thoughts, no intent or plan today. At this time patient denies any homical ideations, intent or plan. Patient denies any auditory, visual hallucinations and denies any paranoia or delusions. Patient denies any side effects from the medications and has been compliant with meds. Mental Status Exam: General Appearance: Patient appears to be thin, tall, longer hair, mildly improving appearance, stated age is alert, directable, and attempts to cooperate. Patient appears to have improving hygiene and grooming. Behavior: Patient is seated without any agitated behavior. Not Tearful today. Attempts to cooperate. Speech: Patient's speech is fluent and nonpressured. Mood/Affect: Patient reports their mood is mild improvement, affect is congruent and improving Suicidality/Homicidality: Patient denies having any homicidal ideation intent or plan. today he denies any suicidal thoughts however no intent or plan. Perceptions: Patient denies any visual hallucinations and denies any auditory hallucinations Though content/process: There is no evidence of any delusional thought content and thought process is linear and goal-directed. Memory and concentration: AOX3, grossly intact for the purposes of this session Judgment and insight: improving mildly IMPRESSIONS: Major depressive disorder, severe, recurrent without psychotic features Generalized anxiety disorder with panic attacks Cannabis use disorder mild Alcohol use disorder, severe dependence PLAN: -Patient is admitted under voluntary status to [facility] for stabilization of psychiatric symptoms and safety. Patient has signed adult voluntary form and medication consent and is placed in patient's chart. -Medications : increase Cymbalta 60 mg BID for mood/anxiety, d/c Librium today, decrease Seroquel 300 mg daily at bedtime + 100 mg daily for mood stabilization/anxiety/insomnia. buspar 15 mg tid for anxiety. vistaril prn for anxiety -Ativan and Haldol PRN for agitation/aggression -thiamine, MVM for etoh use -CIWA protocol with Ativan PRN for ETOH withdrawal -NRT - not needed as patient does not smoke -SW on board for discharge planning. Encourage patient to participate in groups to work on coping skills. at this time patient is gradually imrpoving psychiatrically and if patient continues to improve then likely discharge tomorrow back home. recommending indvl therapy upon discharge.
[2022-11-16] MEDS: hydrOXYzine pamoate 25 MG CAP PO PRN ×2 (12:05→17:21)
[2022-11-16] MEDS: DULoxetine HCL 60 MG CAPSULE.DR PO SCH (21:03)
[2022-11-16] MEDS: QUEtiapine 100 MG TAB PO SCH (21:03)
[2022-11-17] MEDS: hydrOXYzine pamoate 25 MG CAP PO PRN ×2 (00:54→11:13)
[2022-11-17] MEDS: CIPROFLOXACIN 0.3% OPHTH SOLN 5 ML BTL BOTH EYES SCH ×5 (01:10→15:39)
[2022-11-17 06:32] VITALS: BP 134/91; PULSE 88; TEMP 97.7
[2022-11-17] MEDS: FLUTICASONE 50MCG/SPRAY NASAL 16GM EA NOSTRIL SCH (07:52)
[2022-11-17] MEDS: busPIRone HCl 5 MG TAB PO SCH ×2 (07:53→15:39)
[2022-11-17] MEDS: LORATADINE 10 MG TAB PO SCH (07:53)
[2022-11-17] MEDS: guaiFENesin 600 MG TABLET.ER PO SCH (07:53)
[2022-11-17] MEDS: MULTIVITAMINS, THERA 1 EACH TAB PO SCH (07:53)
[2022-11-17] MEDS: DULoxetine HCL 60 MG CAPSULE.DR PO SCH (07:53)
[2022-11-17] MEDS: FOLIC ACID 1 MG TAB PO SCH (07:54)
[2022-11-17] MEDS: THIAMINE 100 MG TAB PO SCH (07:54)
[2022-11-17] MEDS: AMOXIC-POT CLAV 875-125MG 1 EACH TAB PO SCH (07:54)
[2022-11-17] MEDS ORDERED: QUEtiapine 100 MG TAB PO SCH (09:00)
--- NOTE | 2022-11-17 10:19 | P.DS ---
Providers Date of admission: 11/09/22 23:28 Expected date of discharge: 11/17/22 Attending physician: Galen Kwon MD Consults: 11/09/22 23:24 Consult Physician Routine Consulting Provider: Torin Physician Consult Reason/Comments: h and p Do you want consulting provider notified?: Yes, Notify in am Primary care physician: Stated None - Discharge Diagnosis(es) (1) Major depressive disorder, recurrent severe without psychotic features Current Visit: Yes Status: Acute Priority: High (2) Generalized anxiety disorder with panic attacks Current Visit: Yes Status: Acute Priority: High (3) Cannabis use disorder, mild, abuse Current Visit: Yes Status: Acute Priority: Medium (4) Alcohol use disorder, severe, dependence Current Visit: Yes Status: Acute Priority: High Hospital Course: Admission HPI: Admission note was completed by [technical document writer] "[Patient is a 32-year-old male, currently lives alone in a trailer, he works doing [employer], he has one son and is currently . Patient presented to the hospital yesterday, complaining of depression and anxiety and suicidal thoughts and also alcohol abuse. Patient was admitted voluntarily to the mental health unit and seen today for intake. Patient appeared to be disheveled and unkempt in appearance. He states that his left him in August and also took his son as well and he can only see him for once a week. He states that he also has been having relationship issues with his mother, he states that she has been the main support for him however they often get into arguments. He states that he also has little other friends and support outside of his mother. He claims that he lives alone which has been hard for him. Claims that he feels that he has been getting sick with different sinus infections and also abdominal pain in the past few months. He states that he has severe levels of anxiety during the day and at nighttime experiences panic attacks almost nightly. He claims is mainly pal pitations and needs to pace around the room for about 5 minutes to get it to calm down. He claims that his also been feeling depressed and claims that he has been also feeling suicidal lately. He claims that he wanted to overheat himself in the shower 3 times in the past however it is failed. He claims that his sleep has been poor, having frequent awakenings. he states that he is still having suicidal thoughts, no intent or plan. denies any homicidal ideations intent or plan. At this time patient denies any auditory or visual hallucinations. Patient denies any flight of ideas racing thoughts and increased in goal directed behavior. Patient admits to using thc occasionally, denies any cigarette use. he claims that he is drinking several beers and approx a half pint of whiskey per day. ]" Hospital course: Upon admission to the unit patient was [directable and agreeable to commence treatment and signed adult voluntary form]. Patient got along well with other patients on the unit and followed unit protocol. Patient was compliant with the medications and denied any side effects throughout hospital course. Patient was started on cymbalta 60 mg bid mood and anxiety, seroquel 100 mg daily + 300 mg qhs for insomnia/anxiety/mood adjunct, buspar 15 mg tid anxiety, vistaril prn for anxiety. Patient was also placed on scheduled librium for etoh w/d which was tapered down. patient was also on ciwa protocl with prn ativan. Patient spoke of [his] stressors and engaged in therapy both group and individual. Patient was also seen by medical team for history and physical exam. Throughout the course of the hospitalization patient gradually improved with regards to [mood, anxiety], sleep and [became more future oriented with improved insight and judgment]. On the day of discharge patient denied any suicidal or homicidal ideations intent or plan denied any auditory or visual hallucinations. Patient endorsed wanting to live for [his health and future.] The patient denied any access to guns or weapons. Patient denied any paranoia and did not endorse any delusions. Patient does have a significant history of substance abuse [and] was counseled on abstaining from all substances including alcohol and marijuana. [Patient was offered however declined inpatient substance-abuse rehab.] Patient was also counseled on the medications and need for regular compliance and was encouraged to follow-up with their outpatient appointment for mental health and also for primary care. [Prior to discharge a family meeting will be arranged by social staff worker to answer any questions and ensure safety upon discharge.] Mental status exam: General Appearance: Patient appears to be [tall, has a sharma, longer hair, ]stated age is alert, pleasant, and cooperative. Patient is in no acute distress and has improved hygiene and grooming Behavior: Patient is calmly seated without any agitated behavior. Speech: Patient's speech is fluent and nonpressured. Mood/Affect: Patient reports their mood is "[good]", affect is congruent and euthymic. Suicidality/Homicidality: Patient denies having any suicidal or homicidal ideation intent or plan Perceptions: Patient denies any auditory or visual hallucinations. Though content/process: There is no evidence of any delusional thought content and thought process is linear and goal-directed. [more future oriented] Memory and concentration: AOX3, grossly intact for the purposes of this session. Can spell "WORLD" backwards correctly. Judgment and insight: improved with guarded prognosis Impression: Major depressive disorder severe recurrent without psychotic features generalized anxiety disorder with panic attacks cannabis use disorder mild abuse Alcohol use disorder severe dependence Plan: -Continue with discharge today as patient has improved and stabilized psychiatrically and is not currently an imminent threat to [himself] and/or others. [Patient will remain at chronically elevated risk for harm to self and/or others due to his substance abuse.] -Continue medications: cymbalta 60 mg bid for anxiety/mood, buspar 15 mg tid for anxiety, seroquel 100 mg daily + 300 mg qhs for mood adjunct/anxiety/insomnia, vistaril 50 mg bid prn for anxiety. -Patient was counseled on the need for medication compliance and appropriate follow-up at mental health and also primary care for medical issues. Patient verbalized understanding and agreed. -Social work to [arrange for and conduct family meeting to ensure safety upon discharge and answer any questions/concerns.] Social work also to arrange for patients follow up appointments [with [facility]] for psychiatric care along with follow up with primary care provider. -Patient counseled on abstaining from recreational drugs and marijuana and alcohol. Was informed/educated on the adverse effects on their physical and mental health. [Patient verbally agreed and understood]. Patient was offered substance abuse treatment and opted to most likely seek outpatient substance use treatment. we also discussed option for naltrexone and other anti cravings medications however patient will consider this in the future.] -Patient was instructed to return to the hospital or seek immediate medical care if their psychiatric or medical symptoms do worsen or reoccur. Allergies Allergy/AdvReac Type Severity Reaction Status Date / Time ibuprofen [From Motrin] Allergy Rash/Hives Verified 11/10/22 00:08 Laboratory Results WBC 11.7 k/uL (3.8-10.6) H 11/10/22 12:14 RBC 4.91 m/uL (4.30-5.90) 11/10/22 12:14 Hgb 15.8 gm/dL (13.0-17.5) 11/10/22 12:14 Hct 46.1 % (39.0-53.0) 11/10/22 12:14 MCV 93.9 fL (80.0-100.0) 11/10/22 12:14 MCH 32.1 pg (25.0-35.0) 11/10/22 12:14 MCHC 34.2 g/dL (31.0-37.0) 11/10/22 12:14 RDW 12.4 % (11.5-15.5) 11/10/22 12:14 Plt Count 303 k/uL (150-450) 11/10/22 12:14 MPV 7.2 11/10/22 12:14 Neutrophils % 82 % 11/10/22 12:14 Lymphocytes % 10 % 11/10/22 12:14 Monocytes % 6 % 11/10/22 12:14 Eosinophils % 0 % 11/10/22 12:14 Basophils % 0 % 11/10/22 12:14 Neutrophils # 9.6 k/uL (1.3-7.7) H 11/10/22 12:14 Lymphocytes # 1.2 k/uL (1.0-4.8) 11/10/22 12:14 Monocytes # 0.7 k/uL (0-1.0) 11/10/22 12:14 Eosinophils # 0.0 k/uL (0-0.7) 11/10/22 12:14 Basophils # 0.0 k/uL (0-0.2) 11/10/22 12:14 Sodium 136 mmol/L (137-145) L 11/10/22 12:14 Potassium 4.2 mmol/L (3.5-5.1) 11/10/22 12:14 Chloride 95 mmol/L (98-107) L 11/10/22 12:14 Carbon Dioxide 26 mmol/L (22-30) 11/10/22 12:14 Anion Gap 15 mmol/L 11/10/22 12:14 BUN 17 mg/dL (9-20) 11/10/22 12:14 Creatinine 0.91 mg/dL (0.66-1.25) 11/10/22 12:14 Est GFR (CKD-EPI)AfAm >90 (>60 ml/min/1.73 sqM) 11/10/22 12:14 Est GFR (CKD-EPI)NonAf >90 (>60 ml/min/1.73 sqM) 11/10/22 12:14 Glucose 104 mg/dL (74-99) H 11/10/22 12:[address] Glu mg/dL 100 mg/dL 11/10/22 12:14 Hemoglobin A1c 5.1 % 11/10/22 12:14 Calcium 9.6 mg/dL (8.4-10.2) 11/10/22 12:14 Magnesium 2.3 mg/dL (1.6-2.3) 11/09/22 19:22 Total Bilirubin 1.7 mg/dL (0.2-1.3) H 11/10/22 12:14 AST 38 U/L (17-59) 11/10/22 12:14 ALT 32 U/L (4-49) 11/10/22 12:14 Alkaline Phosphatase 104 U/L (38-126) 11/10/22 12:14 Total Protein 8.5 g/dL (6.3-8.2) H 11/10/22 12:14 Albumin 4.8 g/dL (3.5-5.0) 11/10/22 12:14 Triglycerides 70.40 mg/dL 11/10/22 12:14 Cholesterol 211.00 mg/dL H 11/10/22 12:14 LDL Cholesterol, Calc 117.2 mg/dL 11/10/22 12:14 VLDL Cholesterol, Calc 14.08 mg/dL 11/10/22 12:14 HDL Cholesterol 79.70 mg/dL H 11/10/22 12:14 Cholesterol/HDL Ratio 2.65 Ratio 11/10/22 12:14 TSH 1.280 mIU/L (0.465-4.680) 11/10/22 12:14 Urine Color Yellow 11/10/22 02:54 Urine Appearance Cloudy (Clear) 11/10/22 02:54 Urine pH 6.0 (5.0-8.0) 11/10/22 02:54 Ur Specific [place] 1.033 (1.001-1.035) 11/10/22 02:54 Urine Protein 3+ (Negative) H 11/10/22 02:54 Urine Glucose (UA) Negative (Negative) 11/10/22 02:54 Urine Ketones 2+ (Negative) H 11/10/22 02:54 Urine Blood Negative (Negative) 11/10/22 02:54 Urine Nitrite Negative (Negative) 11/10/22 02:54 Urine Bilirubin Negative (Negative) 11/10/22 02:54 Urine Urobilinogen 2.0 mg/dL (<2.0) 11/10/22 02:54 Ur Leukocyte Esterase Negative (Negative) 11/10/22 02:54 Urine RBC 6 /hpf (0-5) H 11/10/22 02:54 Urine WBC 9 /hpf (0-5) H 11/10/22 02:54 Ur Squamous Epith Cells 2 /hpf (0-4) 11/10/22 02:54 Amorphous Sediment Occasional /hpf (None) H 11/10/22 02:54 Hyaline Casts 1976 /lpf (0-2) H 11/10/22 02:54 Urine Mucus Many /hpf (None) H 11/10/22 02:54 Urine Opiates Screen Not Detected (NotDetected) 11/09/22 19:44 Ur Oxycodone Screen Not Detected (NotDetected) 11/09/22 19:44 Urine Methadone Screen Not Detected (NotDetected) 11/09/22 19:44 Ur Propoxyphene Screen Not Detected (NotDetected) 11/09/22 19:44 Ur Barbiturates Screen Not Detected (NotDetected) 11/09/22 19:44 U Tricyclic Antidepress Not Detected (NotDetected) 11/09/22 19:44 Ur Phencyclidine Scrn Not Detected (NotDetected) 11/09/22 19:44 Ur Amphetamines Screen Not Detected (NotDetected) 11/09/22 19:44 U Methamphetamines Scrn Not Detected (NotDetected) 11/09/22 19:44 U Benzodiazepines Scrn Not Detected (NotDetected) 11/09/22 19:44 Urine Cocaine Screen Not Detected (NotDetected) 11/09/22 19:44 U Marijuana (THC) Screen Detected (NotDetected) H 11/09/22 19:44 Coronavirus (PCR) Not Detected (Not Detectd) 11/09/22 23:14 Vital Signs Temp 97.7 F 11/17/22 06:31 Pulse 88 11/17/22 06:31 Resp 16 11/17/22 06:31 BP 134/91 11/17/22 06:31 Pulse Ox 97 11/17/22 06:31 FiO2 Patient Condition at Discharge: Stable Plan - Discharge Summary Discharge Rx Participant: Yes New Discharge Prescriptions: New busPIRone HCL [Buspar] 15 mg PO TID 30 Days #180 tablet Ciprofloxacin Ophth Soln [Ciloxan 0.3% Ophth Soln] 1 drops BOTH EYES Q4HR 10 Days #1 ml Fluticasone Nasal [place] [Flonase Nasal [place]] 2 spray EA NOSTRIL DAILY 30 Days #1 ml Multivitamins, Thera [Multivitamin (formulary)] 1 each PO DAILY 30 Days #30 tab QUEtiapine [SEROquel] 100 mg PO DAILY 30 Days #30 tab QUEtiapine [SEROquel] 300 mg PO HS 30 Days #90 tab Acetaminophen Tab [Tylenol] 650 mg PO Q4HR PRN tab PRN Reason: Mild Pain (Scale 1 To 3) hydrOXYzine pamoate [Vistaril] 50 mg PO BID PRN 30 Days #120 cap PRN Reason: Anxiety Thiamine [Vitamin B-1] 100 mg PO DAILY 30 Days #30 tab Loratadine [Claritin] 10 mg PO DAILY 30 Days #30 tab DULoxetine HCL [Cymbalta] 60 mg PO BID 30 Days #60 cap Folic Acid 1 mg PO DAILY 30 Days #30 tab Discharge Medication List Acetaminophen Tab [Tylenol] 650 mg PO Q4HR PRN tab 11/17/22 [Rx] Ciprofloxacin Ophth Soln [Ciloxan 0.3% Ophth Soln] 1 drops BOTH EYES Q4HR 10 Days #1 ml 11/17/22 [Rx] DULoxetine HCL [Cymbalta] 60 mg PO BID 30 Days #60 cap 11/17/22 [Rx] Fluticasone Nasal [place] [Flonase Nasal [place]] 2 spray EA NOSTRIL DAILY 30 Days #1 ml 11/17/22 [Rx] Folic Acid 1 mg PO DAILY 30 Days #30 tab 11/17/22 [Rx] Loratadine [Claritin] 10 mg PO DAILY 30 Days #30 tab 11/17/22 [Rx] Multivitamins, Thera [Multivitamin (formulary)] 1 each PO DAILY 30 Days #30 tab 11/17/22 [Rx] QUEtiapine [SEROquel] 100 mg PO DAILY 30 Days #30 tab 11/17/22 [Rx] QUEtiapine [SEROquel] 300 mg PO HS 30 Days #90 tab 11/17/22 [Rx] Thiamine [Vitamin B-1] 100 mg PO DAILY 30 Days #30 tab 11/17/22 [Rx] busPIRone HCL [Buspar] 15 mg PO TID 30 Days #180 tablet 11/17/22 [Rx] hydrOXYzine pamoate [Vistaril] 50 mg PO BID PRN 30 Days #120 cap 11/17/22 [Rx] Follow up Appointment(s)/Referral(s): Nii Sharp MD [STAFF PHYSICIAN] - 1-2 days Activity/Diet/Wound Care/Special Instructions: Avoid the use of street drugs and alcohol. Take all medications as prescribed. When you are in need of refills on your medications, please contact your medical provider and/or outpatient psychiatrist to have this done. Please go to scheduled outpatient appointments for aftercare treatment. If symptoms return or become worse, call the crisis line at and/or go to the nearest emergency room for evaluation. Discharge Disposition: HOME SELF-CARE
== END 2022-11-17 16:11 | disposition home or self-care (01) | DRG 751 ==
LOC: EC 18:49 → 3MHU 23:28
PROVIDERS: ADMIT Psychiatry & Neurology Psychiatry; ATTEND Psychiatry & Neurology Psychiatry
DX: F33.2 Major depressive disorder, recurrent severe without psychotic features (principal); F10.20 Alcohol dependence, uncomplicated; F12.10 Cannabis abuse, uncomplicated; F41.1 Generalized anxiety disorder; F41.0 Panic disorder [episodic paroxysmal anxiety]; D72.829 Elevated white blood cell count, unspecified; G47.00 Insomnia, unspecified; R45.851 Suicidal ideations; Z20.822 Contact with and (suspected) exposure to COVID-19; Z79.899 Other long term (current) drug therapy
CPT/HCPCS: 36415; 80053; 80061; 80306; 81001; 82075; 83036; 83735; 84443; 85025; 87635; 96361; 96374; 96375; 99285

== ENCOUNTER 2022-12-19 11:29 | Observation (INO) | payer OTHER ==
[2022-12-19] MEDS ORDERED: SODIUM CHLORIDE 0.9% 1,000 ML IV STA ×2 (11:37→13:27)
[2022-12-19] MEDS ORDERED: PROCHLORPERAZINE INJ 10 MG/2 ML VIAL IVP STA (11:37)
[2022-12-19] MEDS ORDERED: HYDROmorphone 0.5 MG/0.5 ML SYRINGE IVP STA (11:43)
[2022-12-19] MEDS ORDERED: LORazepam 1 MG TAB PO PRN (11:43)
[2022-12-19] MEDS ORDERED: LORazepam 2 MG/ML INJ IV PRN (11:43)
[2022-12-19] MEDS ORDERED: LORazepam 0.5 MG TAB PO PRN (11:43)
[2022-12-19] MEDS ORDERED: THIAMINE 100 MG/ML 2 ML VIAL IM STA (11:43)
[2022-12-19 12:22] LABS: Basophils % (A) 0 %; Eosinophils % (A) 0 %; HCT 46.4 % (39.0-53.0); HGB 16.6 gm/dL (13.0-17.5); Lymphocytes # (A) 0.8 k/uL (1.0-4.8); Lymphocytes % (A) 7 %; MCH 32.8 pg (25.0-35.0); MCHC 35.8 g/dL (31.0-37.0); MCV 91.8 fL (80.0-100.0); Mean Platelet Volume 7.2; Monocytes # (A) 0.5 k/uL (0-1.0); Monocytes % (A) 4 %; Neutrophils # (A) 10.2 k/uL (1.3-7.7); Neutrophils % (A) 88 %; Platelet Count 344 k/uL (150-450); RBC 5.06 m/uL (4.30-5.90); RDW 12.7 % (11.5-15.5); WBC 11.6 k/uL (3.8-10.6)
[2022-12-19 12:29] LABS: AST 56 U/L (17-59); African American GFR (CKD) >90 (>60 ml/min/1.73 sqM); Albumin 5.2 g/dL (3.5-5.0); Alkaline Phosphatase 118 U/L (38-126); Anion Gap 25 mmol/L; Blood Urea Nitrogen 5 mg/dL (9-20); Calcium 10.1 mg/dL (8.4-10.2); Carbon Dioxide 15 mmol/L (22-30); Chloride 101 mmol/L (98-107); Glucose 158 mg/dL (74-99); Lipase 46 U/L (23-300); Non-African American GFR(CKD) >90 (>60 ml/min/1.73 sqM); Potassium 4.1 mmol/L (3.5-5.1); Sodium 141 mmol/L (137-145); Total Bilirubin 0.9 mg/dL (0.2-1.3); Total Protein 8.9 g/dL (6.3-8.2)
[2022-12-19 12:37] LABS: ALT 44 U/L (4-49)
[2022-12-19] MEDS: LORazepam 1 MG TAB PO PRN ×3 (13:11→22:56)
--- NOTE | 2022-12-19 13:17 | CT ---
EXAMINATION TYPE: CT abdomen pelvis wo con DATE OF EXAM: 12/19/2022 COMPARISON: 02/15/2014 HISTORY: 32-year-old male LUQ Abdominal pain and vomiting. CT DLP: 441.2 mGycm. Automated exposure control for dose reduction was used. TECHNIQUE: Contiguous axial scanning of the abdomen and pelvis without IV contrast. Coronal and sagit aston reconstructions performed. FINDINGS: LUNG BASES: No significant abnormality is appreciated. LIVER/GB: No significant abnormality is appreciated. PANCREAS: No significant abnormality is seen. SPLEEN: No significant abnormality is seen. ADRENALS: No significant abnormality is seen. KIDNEYS: No significant abnormality is seen. BOWEL: Mild circumferential wall thickening distal esophagus. No dilated small bowel, fluid, free air . Normal appendix. There is appearance of moderate circumferential wall thickening along the hepatic flexure and proximal transverse colon. No significant stool burden. No pericolonic inflammatory dunne ge. LYMPH NODES: No greater than 1cm abdominal or pelvic lymph nodes are appreciated. PELVIS: Bladder is urine distended. No abnormal fluid collection in the pelvis. OSSEOUS STRUCTURES: No significant abnormality is seen. OTHER: No significant additional abnormality is seen. IMPRESSION: 1. Some moderate circumferential wall thickening along the hepatic flexure of the colon and proximal transverse colon. Correlate for nonspecific infectious or inflammatory colitis. 2. Additionally, mild circumferential wall thickening of the distal esophagus could represent a mild esophagitis.
--- NOTE | 2022-12-19 14:13 | XR ---
EXAMINATION TYPE: XR chest 2V DATE OF EXAM: 12/19/2022 COMPARISON: None HISTORY: 32 year-old lactating acidosis, seizure TECHNIQUE: AP and lateral views FINDINGS: The cardiomediastinal silhouette, aorta, and pulmonary vasculature are within normal limits. Lungs an d pleural spaces are clear. IMPRESSION: No acute cardiopulmonary process.
[2022-12-19 14:20] LABS: Alcohol <10 mg/dL; Magnesium 1.7 mg/dL (1.6-2.3)
[2022-12-19] MEDS ORDERED: NALOXONE 0.4 MG/ML 1 ML VIAL IV PRN (14:59)
[2022-12-19] MEDS ORDERED: ONDANSETRON 4 MG/2 ML VIAL IVP PRN (15:01)
[2022-12-19] MEDS ORDERED: HYDROmorphone 0.5 MG/0.5 ML SYRINGE IVP PRN (15:01)
[2022-12-19] MEDS: SODIUM CHLORIDE 0.9% 1,000 ML IV SCH ×2 (15:06→21:40)
[2022-12-19] MEDS ORDERED: PANTOPRAZOLE 40 MG/10 ML VIAL IVP STA (15:33)
--- NOTE | 2022-12-19 15:57 | ED ---
Abdominal Pain HPI - General Chief Complaint: Abdominal Pain Stated Complaint: Abd Pain,Vomiting Time Seen by Provider: 12/19/22 11:36 Source: patient, EMS Mode of arrival: ambulatory Limitations: no limitations - History of Present Illness Initial Comments: Patient is a 32 year old male who presents to the emergency department for abdominal pain. Patient reports pain in his left upper abdomen since this morning. There is no radiation. He reports several episodes of vomiting and is dry heaving during evaluation, nonbloody, nonbilious. He denies fever, chills, constipation, diarrhea, blood in stool, burning with urination. Does report difficulty urinating. Admits to drinking 2 pints of vodka daily, last drink was last night. Patient is diaphoretic. He denies drug use. Denies history of alcohol withdrawal seizures and hallucinations - Related Data Home Medications Medication Instructions Recorded Confirmed Multivitamins, Thera [Multivitamin 1 tab PO DAILY 12/19/22 12/19/22 (formulary)] QUEtiapine FUMARATE [SEROquel] 300 mg PO HS 12/19/22 12/19/22 busPIRone HCL 15 mg PO TID 12/19/22 12/19/22 hydrOXYzine pamoate 50 mg PO BID PRN 12/19/22 12/19/22 Previous Rx's Medication Instructions Recorded Acetaminophen Tab [Tylenol] 650 mg PO Q4HR PRN tab 11/17/22 DULoxetine HCL [Cymbalta] 60 mg PO BID 30 Days #60 cap 11/17/22 Fluticasone Nasal [place] [Flonase 2 spray EA NOSTRIL DAILY 30 Days 11/17/22 Nasal [place]] #1 ml Folic Acid 1 mg PO DAILY 30 Days #30 tab 11/17/22 Loratadine [Claritin] 10 mg PO DAILY 30 Days #30 tab 11/17/22 QUEtiapine [SEROquel] 100 mg PO DAILY 30 Days #30 tab 11/17/22 Thiamine [Vitamin B-1] 100 mg PO DAILY 30 Days #30 tab 11/17/22 Allergies Allergy/AdvReac Type Severity Reaction Status Date / Time ibuprofen [From Motrin] Allergy Rash/Hives Verified 12/19/22 15:48 Review of Systems ROS Statement: Those systems with pertinent positive or pertinent negative responses have been documented in the HPI. ROS Other: All systems not noted in ROS Statement are negative. Past Medical History Past Medical History: No Reported History History of Any Multi-Drug Resistant Organisms: None Reported Past Surgical History: No Surgical Hx Reported Past Anesthesia/Blood Transfusion Reactions: No Reported Reaction Past Psychological History: Anxiety Past Alcohol Use History: Daily Past Drug Use History: Marijuana General Exam Limitations: no limitations General appearance: alert, in no apparent distress Head exam: Present: atraumatic, normocephalic, normal inspection Eye exam: Present: normal appearance, PERRL, EOMI. Absent: scleral icterus, conjunctival injection, periorbital swelling ENT exam: Present: other (tongue fasciculation) Respiratory exam: Present: normal lung sounds bilaterally. Absent: respiratory distress, wheezes, rales, rhonchi, stridor Cardiovascular Exam: Present: regular rate, normal rhythm, normal heart sounds. Absent: systolic murmur, diastolic murmur, rubs, gallop, clicks GI/Abdominal exam: Present: soft, tenderness (Generalized), normal bowel sounds. Absent: distended, guarding, rebound, rigid Extremities exam: Present: full ROM, normal capillary refill, other (Tremors) Neurological exam: Present: alert Psychiatric exam: Present: normal affect, anxious Skin exam: Present: warm, intact, normal color, diaphoretic. Absent: dry, rash Course Vital Signs 12/19/22 12/19/22 12/19/22 11:42 12:18 12:20 Temperature 97.3 F L Pulse Rate 72 63 80 Respiratory 28 H 24 Rate Blood Pressure 137/99 120/76 120/76 O2 Sat by Pulse 100 100 100 Oximetry 12/19/22 12/19/22 12/19/22 12:40 13:00 13:20 Temperature Pulse Rate 80 Respiratory 24 14 Rate Blood Pressure 129/79 136/100 141/92 O2 Sat by Pulse 95 96 Oximetry 12/19/22 15:08 Temperature Pulse Rate 117 H Respiratory 20 Rate Blood Pressure 102/57 O2 Sat by Pulse 95 Oximetry Medical Decision Making - Medical Decision Making Was pt. sent in by a medical professional or institution (, PA, AMERICANIZATION TEACHER, urgent care, hospital, or intermediate...) When possible be specific @ -No Did you speak to anyone other than the patient for history (EMS, parent, family, police, friend...)? What history was obtained from this source @ -No Did you review nursing and triage notes (agree or disagree)? Why? @ -I reviewed and agree with nursing and triage notes Were old charts reviewed (outside hosp., previous admission, EMS record, old EKG, old radiological studies, urgent care reports/EKG's, intermediate records)? Report findings @ -No old charts were reviewed Differential Diagnosis (chest pain, altered mental status, abdominal pain women, abdominal pain men, vaginal bleeding, weakness, fever, dyspnea, syncope, headache, dizziness, GI bleed, back pain, seizure, CVA, palpatations, mental health)? @ -Differential Abdominal Pain Men: Appendicitis, cholecystitis, diverticulosis, ischemic bowel, pancreatitis, hepatitis, UTI, gastroenteritis, AAA, incarcerated hernia, bowel obstruction, constipation, inflammatory bowel, hepatitis, peptic ulcer disease, splenic infar ction, perforated viscus, testicular torsion, this is not meant to be an all- inclusive list EKG interpreted by me (3pts min.). @ -As above X-rays interpreted by me (1pt min.). @ -None done CT interpreted by me (1pt min.). @ Nonspecific colitis and possible mild esophagitis U/S interpreted by me (1pt. min.). @ -None done What testing was considered but not performed or refused? (CT, X-rays, U/S, labs)? Why? @ -None What meds were considered but not given or refused? Why? @ -None Did you discuss the management of the patient with other professionals (professionals i.e. , PA, AMERICANIZATION TEACHER, lab, RT, psych nurse, child protective services social worker, scrap piler, teacher, business development officer, rn case mgr)? Give summary @ -No Was smoking cessation discussed for >3mins.? @ -No Was critical care preformed (if so, how long)? @ -No Were there social determinants of health that impacted care today? How? (Homelessness, low income, unemployed, alcoholism, drug addiction, transp ortation, low edu. Level, literacy, decrease access to med. care, detention, rehab)? @ -No Was there de-escalation of care discussed even if they declined (Discuss DNR or withdrawal of care, Hospice)? DNR status @ -No What co-morbidities impacted this encounter? (DM, HTN, Smoking, COPD, CAD, Cancer, CVA, ARF, Chemo, Hep., AIDS, mental health diagnosis, sleep apnea, morbid obesity)? @ -Alcohol use disorder Was patient admitted / discharged? Hospital course, mention meds given and route, prescriptions, significant lab abnormalities, going to OR and other pertinent info. @ -Admitted for colitis and alcohol withdrawal Undiagnosed new problem with uncertain prognosis? @ -No Drug Therapy requiring intensive monitoring for toxicity (Heparin, Nitro, Insulin, Cardizem)? @ -No Were any procedures done? @ -No Diagnosis/symptom? @ -Colitis, alcohol withdrawal Acute, or Chronic, or Acute on Chronic? @ -Acute Uncomplicated (without systemic symptoms) or Complicated (systemic symptoms)? @ -Uncomplicated Side effects of treatment? @ -No Exacerbation, Progression, or Severe Exacerbation? @ -No Poses a threat to life or bodily function? How? (Chest pain, [place], [place], pneumonia, PE, COPD, DKA, ARF, appy, cholecystitis, CVA, Diverticulitis, Homicidal, S uicidal, threat to staff... and all critical care pts) @ -Yes Dr. Campos is my attending - Lab Data Result diagrams: 12/19/22 12:07 12/19/22 12:07 Lab Results 12/19/22 12/19/22 12/19/22 Range/Units 12:07 12:07 12:07 WBC 11.6 H (3.8-10.6) k/uL RBC 5.06 (4.30-5.90) m/uL Hgb 16.6 (13.0-17.5) gm/dL Hct 46.4 (39.0-53.0) % MCV 91.8 (80.0-100.0) fL MCH 32.8 (25.0-35.0) pg MCHC 35.8 (31.0-37.0) g/dL RDW 12.7 (11.5-15.5) % Plt Count 344 (150-450) k/uL MPV 7.2 Neutrophils % 88 % Lymphocytes % 7 % Monocytes % 4 % Eosinophils % 0 % Basophils % 0 % Neutrophils # 10.2 H (1.3-7.7) k/uL Lymphocytes # 0.8 L (1.0-4.8) k/uL Monocytes # 0.5 (0-1.0) k/uL Eosinophils # 0.0 (0-0.7) k/uL Basophils # 0.0 (0-0.2) k/uL Sodium 141 (137-145) mmol/L Potassium 4.1 (3.5-5.1) mmol/L Chloride 101 (98-107) mmol/L Carbon Dioxide 15 L (22-30) mmol/L Anion Gap 25 mmol/L BUN 5 L (9-20) mg/dL Creatinine 0.73 (0.66-1.25) mg/dL Est GFR (CKD-EPI)AfAm >90 (>60 ml/min/1.73 sqM) Est GFR (CKD-EPI)NonAf >90 (>60 ml/min/1.73 sqM) Glucose 158 H (74-99) mg/dL Lactic Ac Sepsis Rflx Plasma Lactic Acid Andres 7.8 H* (0.7-2.0) mmol/L Calcium 10.1 (8.4-10.2) mg/dL Magnesium (1.6-2.3) mg/dL Total Bilirubin 0.9 (0.2-1.3) mg/dL AST 56 (17-59) U/L ALT 44 (4-49) U/L Alkaline Phosphatase 118 (38-126) U/L Total Protein 8.9 H (6.3-8.2) g/dL Albumin 5.2 H (3.5-5.0) g/dL Lipase 46 (23-300) U/L Serum Alcohol mg/dL 12/19/22 12/19/22 Range/Units 12:44 13:55 WBC (3.8-10.6) k/uL RBC (4.30-5.90) m/uL Hgb (13.0-17.5) gm/dL Hct (39.0-53.0) % MCV (80.0-100.0) fL MCH (25.0-35.0) pg MCHC (31.0-37.0) g/dL RDW (11.5-15.5) % Plt Count (150-450) k/uL MPV Neutrophils % % Lymphocytes % % Monocytes % % Eosinophils % % Basophils % % Neutrophils # (1.3-7.7) k/uL Lymphocytes # (1.0-4.8) k/uL Monocytes # (0-1.0) k/uL Eosinophils # (0-0.7) k/uL Basophils # (0-0.2) k/uL Sodium (137-145) mmol/L Potassium (3.5-5.1) mmol/L Chloride (98-107) mmol/L Carbon Dioxide (22-30) mmol/L Anion Gap mmol/L BUN (9-20) mg/dL Creatinine (0.66-1.25) mg/dL Est GFR (CKD-EPI)AfAm (>60 ml/min/1.73 sqM) Est GFR (CKD-EPI)NonAf (>60 ml/min/1.73 sqM) Glucose (74-99) mg/dL Lactic Ac Sepsis Rflx Y Plasma Lactic Acid Andres (0.7-2.0) mmol/L Calcium (8.4-10.2) mg/dL Magnesium 1.7 (1.6-2.3) mg/dL Total Bilirubin (0.2-1.3) mg/dL AST (17-59) U/L ALT (4-49) U/L Alkaline Phosphatase (38-126) U/L Total Protein (6.3-8.2) g/dL Albumin (3.5-5.0) g/dL Lipase (23-300) U/L Serum Alcohol <10 mg/dL Disposition Clinical Impression: Colitis, Alcohol withdrawal Disposition: ADMITTED IP TO THIS HOSP Condition: Stable Referrals: Nii Sharp MD [Primary Care Provider] - 1-2 days
--- NOTE | 2022-12-19 15:59 | P.HPIM ---
History of Present Illness H&P Date: 12/19/22 Chief Complaint: Intractable nausea vomiting Patient is a 32-year-old male with a past medical history of alcohol use, depression and anxiety who presents to the ED with intractable nausea and vomiting that started this morning. Patient denying any blood in his vomitus. He states that it is mainly bile. He states that he is also been retching a lot. He denies any diarrhea. He currently also denies any abdominal pain. He denies any blood in his stool. Patient states that he drinks half a point of alcohol per day. He states he has never had any issues with alcohol withdrawal. He denies any urinary incontinence, bowel incontinence, or tongue bite. He reports that his last drink was last night. In the ED patient's WBC was 11.6, bicarb 15, lactic acid 7.8 and lipase 46. His alcohol level was within normal limits. Computed tomography scan showed moderate circumferential wall thickening along the hepatic flexure of the colon and proximal transverse colon which could be nonspecific infectious or inflammatory colitis. There is also mild circumferential wall thickening of the distal esophagus which could represent mild esophagitis. Patient admitted to the medicine service for intractable nausea vomiting. Off note patient was admitted at her behavioral health unit one month ago for major depression. Patient states that he has been compliant with all his psychiatric medications and he denies any homicidal or suicidal idealization. Physical exam General: [Alert and oriented, well nourished, no acute distress]. Eye: [PERRL, EOMI, normal conjunctiva]. HENT: [Normocephalic, clear tympanic membranes, normal hearing, moist oral mucosa, no scleral icterus, no sinus tenderness]. Neck: [Supple, non-tender, no carotid bruits, no JVD, no lymphadenopathy]. Lungs: [Clear to auscultation and percussion, non-labored respiration]. Heart: [Normal rate, regular rhythm, no murmur, gallop or edema]. Abdomen: [Soft, non-tender, non-distended, normal bowel sounds, no masses]. Musculoskeletal: [Normal range of motion and strength, no tenderness or swelling]. Skin: [Skin is warm, dry and pink, no rashes or lesions]. Neurologic: [Awake, alert, and oriented X3, CN II-XII intact]. Psychiatric: [Cooperative, appropriate mood and affect]. Assessment Intractable nausea vomiting suspect due to alcoholic gastroenteritis Lactic acidosis likely due to dehydration Metabolic acidosis Alcohol use disorder Anxiety and depression Plan Continue with supportive care with normal saline 130 mL an hour and Zofran 4 mg IV every 8 hours when necessary Trend lactic acid. Patient denying any diarrhea so doubt patient has infectious colitis. We'll hold off on antibiotics for now unless patient has a fever. Due to the abnormal CT findings which could be nonspecific I recommended to the patient that she'll follow with GI outpatient for a colonoscopy. IV Dilaudid 0.4 mg every 4 hours when necessary CIWA protocol Continue with his psychiatric medications Past Medical History Past Medical History: No Reported History History of Any Multi-Drug Resistant Organisms: None Reported Past Surgical History: No Surgical Hx Reported Past Anesthesia/Blood Transfusion Reactions: No Reported Reaction Past Psychological History: Anxiety Past Alcohol Use History: Daily Past Drug Use History: Marijuana Medications and Allergies Home Medications Medication Instructions Recorded Confirmed Type Acetaminophen Tab [Tylenol] 650 mg PO Q4HR PRN tab 11/17/22 Rx Ciprofloxacin Ophth Soln [Ciloxan 1 drops BOTH EYES Q4HR 10 Days #1 11/17/22 Rx 0.3% Ophth Soln] ml DULoxetine HCL [Cymbalta] 60 mg PO BID 30 Days #60 cap 11/17/22 Rx Fluticasone Nasal Trion [Flonase 2 spray EA NOSTRIL DAILY 30 Days 11/17/22 Rx Nasal Trion] #1 ml Folic Acid 1 mg PO DAILY 30 Days #30 tab 11/17/22 Rx Loratadine [Claritin] 10 mg PO DAILY 30 Days #30 tab 11/17/22 Rx Multivitamins, Thera [Multivitamin 1 each PO DAILY 30 Days #30 tab 11/17/22 Rx (formulary)] QUEtiapine [SEROquel] 100 mg PO DAILY 30 Days #30 tab 11/17/22 Rx QUEtiapine [SEROquel] 300 mg PO HS 30 Days #90 tab 11/17/22 Rx Thiamine [Vitamin B-1] 100 mg PO DAILY 30 Days #30 tab 11/17/22 Rx busPIRone HCL [Buspar] 15 mg PO TID 30 Days #180 tablet 11/17/22 Rx hydrOXYzine pamoate [Vistaril] 50 mg PO BID PRN 30 Days #120 cap 06/13/23 Rx Allergies Allergy/AdvReac Type Severity Reaction Status Date / Time ibuprofen [From Motrin] Allergy Rash/Hives Verified 12/19/22 11:46 Physical Exam Osteopathic Statement: *. No significant issues noted on an osteopathic structural exam other than those noted in the History and Physical/Consult. Vitals: Vital Signs Temp Pulse Resp BP Pulse Ox 12/19/22 15:08 117 H 20 102/57 95 12/19/22 13:20 141/92 12/19/22 13:00 14 136/100 96 12/19/22 12:40 80 24 129/79 95 12/19/22 12:20 80 24 120/76 100 12/19/22 12:18 63 120/76 100 12/19/22 11:42 97.3 F L 72 28 H 137/99 100 Intake and Output 12/19/22 12/19/22 12/19/22 06:59 14:59 22:59 Other: Weight 77.111 kg Results CBC & Chem 7: 12/19/22 12:07 12/19/22 12:07 Labs: Abnormal Lab Results - Last 24 Hours (Table) 12/19/22 12/19/22 12/19/22 Range/Units 12:07 12:07 12:07 WBC 11.6 H (3.8-10.6) k/uL Neutrophils # 10.2 H (1.3-7.7) k/uL Lymphocytes # 0.8 L (1.0-4.8) k/uL Carbon Dioxide 15 L (22-30) mmol/L BUN 5 L (9-20) mg/dL Glucose 158 H (74-99) mg/dL Plasma Lactic Acid Andres 7.8 H* (0.7-2.0) mmol/L Total Protein 8.9 H (6.3-8.2) g/dL Albumin 5.2 H (3.5-5.0) g/dL
[2022-12-19] MEDS: busPIRone HCl 5 MG TAB PO SCH ×2 (16:12→21:39)
[2022-12-19] MEDS: QUEtiapine 100 MG TAB PO SCH (21:40)
[2022-12-19] MEDS: DULoxetine HCL 60 MG CAPSULE.DR PO SCH (21:40)
[2022-12-20] MEDS: SODIUM CHLORIDE 0.9% 1,000 ML IV SCH ×3 (06:07→21:44)
[2022-12-20] MEDS: THIAMINE 100 MG TAB PO SCH (07:58)
[2022-12-20] MEDS: busPIRone HCl 5 MG TAB PO SCH ×3 (07:58→21:11)
[2022-12-20] MEDS: LORazepam 1 MG TAB PO PRN (07:58)
[2022-12-20] MEDS: QUEtiapine 100 MG TAB PO SCH ×2 (07:59→21:11)
[2022-12-20] MEDS: DULoxetine HCL 60 MG CAPSULE.DR PO SCH ×2 (07:59→21:12)
[2022-12-20 09:33] LABS: Basophils % (A) 0 %; Eosinophils # (A) 0.1 k/uL (0-0.7); Eosinophils % (A) 1 %; HCT 42.3 % (39.0-53.0); HGB 14.1 gm/dL (13.0-17.5); Lymphocytes % (A) 18 %; MCH 31.8 pg (25.0-35.0); MCHC 33.3 g/dL (31.0-37.0); MCV 95.6 fL (80.0-100.0); Mean Platelet Volume 7.4; Monocytes # (A) 0.5 k/uL (0-1.0); Monocytes % (A) 8 %; Neutrophils # (A) 4.1 k/uL (1.3-7.7); Neutrophils % (A) 71 %; Platelet Count 234 k/uL (150-450); RBC 4.42 m/uL (4.30-5.90); RDW 12.8 % (11.5-15.5); WBC 5.7 k/uL (3.8-10.6)
[2022-12-20 09:43] LABS: African American GFR (CKD) >90 (>60 ml/min/1.73 sqM); Anion Gap 7 mmol/L; Blood Urea Nitrogen 11 mg/dL (9-20); Calcium 8.9 mg/dL (8.4-10.2); Carbon Dioxide 28 mmol/L (22-30); Chloride 105 mmol/L (98-107); Glucose 86 mg/dL (74-99); Magnesium 2.2 mg/dL (1.6-2.3); Non-African American GFR(CKD) >90 (>60 ml/min/1.73 sqM); Potassium 3.6 mmol/L (3.5-5.1); Sodium 140 mmol/L (137-145)
--- NOTE | 2022-12-20 12:00 | P.PN ---
Subjective Progress Note Date: 12/20/22 Today patient states that his nausea vomiting is improving. He said that he had some water this morning and was able to keep it down. He states that he does feel tired. Physical exam General examination - Alert and Oriented 3 in NAD Heart - + S1S2 no murmurs Lungs - Clear to auscultation Abdomen soft NT ND +ve BS Extremities - No edema CUT OUT OPERATOR - Moving all 4 extremities spontaneously Psych - Calm and cooperative Hospital course Patient is a 32-year-old male with a past medical history of alcohol use, depression and anxiety who presents to the ED with intractable nausea and vomiting that started this morning. Patient denying any blood in his vomitus. He states that it is mainly bile. He states that he is also been retching a lot. He denies any diarrhea. He currently also denies any abdominal pain. He denies any blood in his stool. Patient states that he drinks half a point of alcohol per day. He states he has never had any issues with alcohol withdrawal. He denies any urinary incontinence, bowel incontinence, or tongue bite. He reports that his last drink was last night. In the ED patient's WBC was 11.6, bicarb 15, lactic acid 7.8 and lipase 46. His alcohol level was within normal limits. Computed tomography scan showed moderate circumferential wall thickening along the hepatic flexure of the colon and proximal transverse colon which could be nonspecific infectious or inflammatory colitis. There is also mild circumferential wall thickening of the distal esophagus which could represent mild esophagitis. Patient admitted to the medicine service for intractable nausea vomiting. Off note patient was admitted at her behavioral health unit one month ago for major depression. Patient states that he has been compliant with all his psychiatric medications and he denies any homicidal or suicidal idealization. Patient was given aggressive fluids overnight. The next in the morning is lactic acid had normalized. His bicarbonate also normalized. Patient did require one time dose of IV Ativan for alcohol withdrawal. Patie nt's nausea vomiting is also improving. Assessment Intractable nausea vomiting suspect due to alcoholic gastroenteritis Lactic acidosis likely due to dehydration Metabolic acidosis Alcohol use disorder Anxiety and depression Plan We'll discontinue IV fluids. Patient encouraged to drink more fluids Due to the abnormal CT findings which could be nonspecific I recommended to the patient that she'll follow with GI outpatient for a colonoscopy. Patient currently denying any abdominal pain. IV Dilaudid 0.4 mg every 4 hours when necessary CIWA protocol Continue with his psychiatric medications Anticipated patient be ready for discharge in the next 24 hours Objective - Vital Signs Vital signs: Vital Signs Temp 98.1 F 12/20/22 07:35 Pulse 86 12/20/22 07:35 Resp 18 12/20/22 07:35 BP 104/66 12/20/22 07:35 Pulse Ox 97 12/20/22 07:35 FiO2 Intake & Output 12/19/22 12/20/22 12/20/22 18:59 06:59 18:59 Weight 77.111 kg Other: Voiding Method Toilet # Voids 1 - Labs CBC & Chem 7: 12/20/22 09:20 12/20/22 09:20 Labs: Abnormal Lab Results - Last 24 Hours (Table) 12/19/22 12/19/22 12/19/22 Range/Units 12:07 12:07 12:07 WBC 11.6 H (3.8-10.6) k/uL Neutrophils # 10.2 H (1.3-7.7) k/uL Lymphocytes # 0.8 L (1.0-4.8) k/uL Carbon Dioxide 15 L (22-30) mmol/L BUN 5 L (9-20) mg/dL Glucose 158 H (74-99) mg/dL Plasma Lactic Acid Andres 7.8 H* (0.7-2.0) mmol/L Total Protein 8.9 H (6.3-8.2) g/dL Albumin 5.2 H (3.5-5.0) g/dL
[2022-12-20 18:40] LABS: Appearance,Urine Clear (Clear); Bilirubin,Urine Negative (Negative); Blood,Urine Negative (Negative); Color,Urine Yellow; Glucose,Urine (UA) Negative (Negative); Ketones,Urine 1+ (Negative); Leukocyte Esterase,Urine Small (Negative); Mucus,Urine Few /hpf; Nitrite,Urine Negative (Negative); Protein,Urine Trace (Negative); RBC,Urine <1 /hpf (0-5); Specific Gravity,Urine 1.019 (1.001-1.035); Squamous Epithelial Cell,Urine <1 /hpf (0-4); WBC,Urine 5 /hpf (0-5)
[2022-12-20 18:41] LABS: Cocaine Screen,Urine Not Detected (NotDetected); Phencyclidine Screen,Urine Not Detected (NotDetected); Urn Cannabinoid Scrn Detected (NotDetected)
[2022-12-20 18:42] LABS: Amphetamine Screen,Urine Not Detected (NotDetected); Barbiturate Screen,Urine Not Detected (NotDetected); Benzodiazepines Screen,Urine Detected (NotDetected); Methadone Screen, Urine Not Detected (NotDetected); Opiate Screen,Urine Not Detected (NotDetected); Oxycodone Screen, Urine Not Detected (NotDetected); Tricyclic Antidepressant,Urine Detected (NotDetected)
[2022-12-21] MEDS: SODIUM CHLORIDE 0.9% 1,000 ML IV SCH (00:02)
[2022-12-21] MEDS: THIAMINE 100 MG TAB PO SCH (07:10)
[2022-12-21] MEDS: DULoxetine HCL 60 MG CAPSULE.DR PO SCH (07:10)
[2022-12-21] MEDS: busPIRone HCl 5 MG TAB PO SCH (07:10)
[2022-12-21] MEDS: QUEtiapine 100 MG TAB PO SCH (07:13)
[2022-12-21 07:52] VITALS: BP 117/83; PULSE 78; RESP 19; TEMP 98.5
--- NOTE | 2022-12-21 10:45 | P.DS ---
Providers Date of admission: 12/19/22 15:51 Attending physician: Megan Vences MD Primary care physician: [facility] Course: Discharge Diagnosis: Intractable nausea vomiting suspect due to alcoholic gastritis Lactic acidosis likely due to dehydration Metabolic acidosis Alcohol use disorder Anxiety and depression Hospital Course: Patient is a 32-year-old male with a past medical history of alcohol use, depression and anxiety who presents to the ED with intractable nausea and vomiting that started this morning. Patient denying any blood in his vomitus. He states that it is mainly bile. He states that has also been retching a lot. He denies any diarrhea. He currently also denies any abdominal pain. In the ED patient's WBC was 11.6, bicarb 15, lactic acid 7.8 and lipase 46. His alcohol level was within normal limits. Computed tomography scan showed moderate circumferential wall thickening along the hepatic flexure of the colon and proximal transverse colon which could be nonspecific infectious or inflammatory colitis. There is also mild circumferential wall thickening of the distal esophagus which could represent mild esophagitis. Patient admitted to the medic ine service for intractable nausea vomiting. Patient was treated with supportive care with IV antiemetics and fluids. The following day patient's bicarbonate normalized and his lactic acid also nor malized. I believe the etiology of his lactic acidosis is from dehydration due to intractable nausea vomiting due to alcoholic gastritis. On the day of discharge patient reported that he is feeling better and is able to tolerate his diet and he is looking forward to going home. Patient was instructed to follow- up with GI regarding the abnormal CT findings. I did not do any further workup regarding the abnormal CT findings while the patient was inpatient because patient denied any diarrhea, abdominal pain or blood in his stool. Patient states that he has seen a metal sprayer in [place], [place] because of intermittent bright red blood per rectum. He was recommended by the metal sprayer to get a colonoscopy in the next year or 2. Patient plans on following up with his metal sprayer to schedule a colonoscopy as soon as possible. Patient was counseled extensively on alcoholic cessation. At the time of discharge patient was not in withdrawal. He was given IV Ativan however I doubt it was due to alcohol withdrawal. Patient did not get any Ativan 24 hours prior to discharge. Patient started on Protonix 40 mg daily for his alcoholic gastritis. Patient seen and examined at bedside.[] Vital signs reviewed and stable. General: [non toxic], [no distress], [appears at stated age] Derm: [warm], [dry] Head: [atraumatic], [normocephalic], [symmetric] Eyes: [EOMI], [no lid lag], [anicteric sclera] Mouth: [no lip lesion], [mucus membranes moist] Cardiovascular: [S1S2 reg], [no murmur], [positive posterior tibial pulse bilateral], Lungs: [CTA bilateral], [no rhonchi, no rales] , [no accessory muscle use] Abdominal: [soft], [ nontender to palpation], [no guarding], [no appreciable organomegaly] Ext: [no gross muscle atrophy], [no edema], [no contractures] Neuro: [ CN II-XI grossly intact], [no focal neuro deficits] Psych: [Alert], [oriented], [appropriate affect] A total of [33] minutes of time were spent preparing this complex discharge sum ella . Patient Condition at Discharge: Stable Plan - Discharge Summary Discharge Rx Participant: Yes New Discharge Prescriptions: New Pantoprazole Sodium [Protonix] 40 mg PO DAILY #30 tab Continue Fluticasone Nasal Valencia [Flonase Nasal Valencia] 2 spray EA NOSTRIL DAILY 30 Days #1 ml QUEtiapine [SEROquel] 100 mg PO DAILY 30 Days #30 tab Acetaminophen Tab [Tylenol] 650 mg PO Q4HR PRN tab PRN Reason: Mild Pain (Scale 1 To 3) Thiamine [Vitamin B-1] 100 mg PO DAILY 30 Days #30 tab busPIRone HCL 15 mg PO TID Multivitamins, Thera [Multivitamin (formulary)] 1 tab PO DAILY QUEtiapine FUMARATE [SEROquel] 300 mg PO HS Loratadine [Claritin] 10 mg PO DAILY 30 Days #30 tab DULoxetine HCL [Cymbalta] 60 mg PO BID 30 Days #60 cap Folic Acid 1 mg PO DAILY 30 Days #30 tab hydrOXYzine pamoate 50 mg PO BID PRN PRN Reason: Anxiety Discharge Medication List Acetaminophen Tab [Tylenol] 650 mg PO Q4HR PRN tab 11/17/22 [Rx] DULoxetine HCL [Cymbalta] 60 mg PO BID 30 Days #60 cap 11/17/22 [Rx] Fluticasone Nasal [place] [Flonase Nasal Valencia] 2 spray EA NOSTRIL DAILY 30 Days #1 ml 11/17/22 [Rx] Folic Acid 1 mg PO DAILY 30 Days #30 tab 11/17/22 [Rx] Loratadine [Claritin] 10 mg PO DAILY 30 Days #30 tab 11/17/22 [Rx] QUEtiapine [SEROquel] 100 mg PO DAILY 30 Days #30 tab 11/17/22 [Rx] Thiamine [Vitamin B-1] 100 mg PO DAILY 30 Days #30 tab 11/17/22 [Rx] Multivitamins, Thera [Multivitamin (formulary)] 1 tab PO DAILY 12/19/22 [History] QUEtiapine FUMARATE [SEROquel] 300 mg PO HS 12/19/22 [History] busPIRone HCL 15 mg PO TID 12/19/22 [History] hydrOXYzine pamoate 50 mg PO BID PRN 12/19/22 [History] Pantoprazole Sodium [Protonix] 40 mg PO DAILY #30 tab 12/21/22 [Rx] Follow up Appointment(s)/Referral(s): Nii Sharp MD [Primary Care Provider] - 1-2 days Discharge Disposition: HOME SELF-CARE Care Plan Goals (MU): Please schedule a colonoscopy with your metal sprayer as soon as possible.
== END 2022-12-21 13:15 | disposition home or self-care (01) ==
LOC: EC 11:29 → 4SSUR 15:51 → INTOOBSV 15:51 → 4SSUR 17:41 → UNDODISIN 12-21 13:15
PROVIDERS: ADMIT Internal Medicine; ATTEND Internal Medicine
DX: R11.2 Nausea with vomiting, unspecified (principal); K29.20 Alcoholic gastritis without bleeding; F10.20 Alcohol dependence, uncomplicated; E87.20 Acidosis, unspecified; N32.89 Other specified disorders of bladder; F32.A Depression, unspecified; F41.9 Anxiety disorder, unspecified; Z79.899 Other long term (current) drug therapy; Z88.6 Allergy status to analgesic agent; Y90.0 Blood alcohol level of less than 20 mg/100 ml
CPT/HCPCS: 96361 ×3; 96372; 96374; 96375; 99285; 36415; 80053; 80048; 83605; 83690; 83735 ×2; 85025 ×2; 81001; 80306; 71046; 74176; G0378 ×4; G0480; J2060; J0780; J3411; C9113; J1170; 80320